=== PATIENT | male | born 1930 | race Caucasian/White ===

== ENCOUNTER 2016-06-16 11:30 | Emergency (ER) | payer MEDICARE, BC ==
--- NOTE | 2016-06-16 11:46 | ER Document Report ---
ED Medical Screen (RME) - General Stated Complaint: BLOOD PRESSURE PROBLEM Mode of Arrival: Ambulatory Information source: Patient Notes: PT PRESENTS TO THE ED FOR BLOOD PRESSURE CONCERNS. DR MEDEIROS SENT PATIENT TO ED. patient denies symptoms. Denies numbness tingling. Denies chest pain shortness of breath. Patient looks nontoxic happy. I have greeted and performed a rapid initial assessment of this patient. A comprehensive ED assessment and evaluation of the patient, analysis of test results and completion of the medical decision making process will be conducted by additional ED providers. TRAVEL OUTSIDE OF THE [place] IN LAST 30 DAYS: No Past Medical History Past Surgical History: Reports: Hx Cardiac Surgery - Immunizations Hx Diphtheria, Pertussis, Tetanus Vaccination: Yes Physical Exam - Vital signs Vitals: Temp Pulse Resp BP Pulse Ox 98.1 F 59 L 18 177/87 H 98 06/16/16 11:40 06/16/16 11:40 06/16/16 11:40 06/16/16 11:40 06/16/16 11:40 Course - Vital Signs Vital signs: Temp Pulse Resp BP Pulse Ox 98.1 F 59 L 18 177/87 H 98 06/16/16 11:40 06/16/16 11:40 06/16/16 11:40 06/16/16 11:40 06/16/16 11:40
[2016-06-16 12:58] LABS: APPEARANCE,URINE CLEAR; BILIRUBIN,URINE NEGATIVE (NEGATIVE); GLUCOSE, URINE NEGATIVE (NEGATIVE); KETONES,URINE NEGATIVE (NEGATIVE); LEUKOCYTE ESTERASE,URINE NEGATIVE (NEGATIVE); NITRITE,URINE NEGATIVE (NEGATIVE); PROTEIN,URINE NEGATIVE (NEGATIVE); URINE SPECIFIC GRAVITY 1.006; UROBILINOGEN,URINE NEGATIVE mg/dL (<2.0)
[2016-06-16 12:59] LABS: ABSOLUTE EOSINOPHILS # (AUTO) 0.2 10^3/uL (0.0-0.6); ABSOLUTE LYMPHOCYTES (AUTO) 1.1 10^3/uL (0.5-4.7); ABSOLUTE MONOCYTES (AUTO) 0.4 10^3/uL (0.1-1.4); ABSOLUTE NEUT (AUTO) 3.8 10^3/uL (1.7-8.2); BASOPHILS % (AUTO) 0.7 % (0-2); EOSINOPHILS % (AUTO) 4.4 % (0-6); HEMATOCRIT 37.6 % (37.9-51.0); HEMOGLOBIN 12.8 g/dL (13.5-17.0); HGB HCT DIFFERENCE 0.8; LYMPHOCYTES % (AUTO) 18.9 % (13-45); MEAN CORPUSCULAR HEMOGLOBIN 29.9 pg (27.0-33.4); MEAN CORPUSCULAR HGB CONC 34.2 g/dL (32.0-36.0); MEAN CORPUSCULAR VOLUME 87 fl (80-97); RED CELL DISTRIBUTION WIDTH 12.9 % (11.5-14.0); WHITE BLOOD COUNT 5.6 10^3/uL (4.0-10.5)
[2016-06-16 13:14] LABS: ALANINE AMINOTRANSFERASE 25 U/L (21-72); ALBUMIN 4.2 g/dL (3.5-5.0); ALKALINE PHOSPHATASE 71 U/L (38-126); ANION GAP 10 (5-19); ASPARTATE AMINO TRANSFERASE 22 U/L (17-59); BILIRUBIN,DIRECT 0.2 mg/dL (0.0-0.4); BILIRUBIN,TOTAL 0.8 mg/dL (0.2-1.3); BLOOD UREA NITROGEN 20 mg/dL (7-20); CALCIUM 9.5 mg/dL (8.4-10.2); CARBON DIOXIDE 29 mmol/L (22-30); CHLORIDE 102 mmol/L (98-107); CREATINE KINASE 86 U/L (55-170); CREATININE RESULT 0.94 mg/dL (0.52-1.25); GLUCOSE 91 mg/dL (75-110); POTASSIUM 4.5 mmol/L (3.6-5.0); SODIUM 140.8 mmol/L (137-145); TOTAL PROTEIN 7.2 g/dL (6.3-8.2)
[2016-06-16 13:31] LABS: CREATINE KINASE MB 0.81 ng/mL (<4.55)
[2016-06-16 13:33] LABS: TROPONIN I < 0.012 ng/mL
[2016-06-16 13:36] LABS: PROTHROMBIN TIME 15.2 SEC (11.4-15.4)
--- NOTE | 2016-06-16 15:17 | ER Document Report ---
ED Blood Pressure Problem <CARL BELOL - Last Filed: 06/16/16 15:31> - General Time seen by provider: 15:05 Mode of Arrival: Ambulatory Information source: Patient, Relative - spouse TRAVEL OUTSIDE OF THE [place] IN LAST 30 DAYS: No - HPI Patient complains to provider of: High blood pressure Onset: Other - see HPI note Onset/Duration: Persistent Quality of pain: No pain Problem is: Chronic problem Associated symptoms: None Similar symptoms previously: Yes Recently seen / treated by doctor: Yes - Dr. Sterling, Thursday <ALEIDA GRACE - Last Filed: 06/16/16 15:58> - General Chief Complaint: High Blood Pressure Stated Complaint: BLOOD PRESSURE PROBLEM Notes: Patient is an 85 year old male presenting to the emergency department for hypertension. Patient has a history of hypertension and saw his primary care physician, Dr. Pollard for his hypertension on Thursday; Dr. Pollard upped the patient's dose of Carvedilol from 12.5 mg x2 per day to 18.5 mg x2 per day. Patient and spouse went to [facility] this morning and the patient's blood pressure was 201/ 101 and 216/97 later on today. Patient has been taking his medication as prescribed. Patient states he feels fine and complains of no symptoms. Patient also has a history of prostate cancer, bypass surgery, and a normal heart catheterization in 11/2015. Patient has no known allergies. Patient's spouse states the patient is scheduled for surgery Thursday at [facility] to remove his penile implant and fix a right inguinal hernia. (ALEIDA GRACE) - Related Data Allergies/Adverse Reactions: No Known Allergies Allergy (Verified 06/16/16 11:46) Past Medical History - General Information source: Patient, Relative - spouse - Social History Smoking Status: Never Smoker Chew tobacco use (# tins/day): No Frequency of alcohol use: None Drug Abuse: None Family History: None Patient has suicidal ideation: No Patient has homicidal ideation: No Malignancy Medical History: Reports Hx Prostate Cancer Past Surgical History: Reports: Hx Appendectomy - 1955, Hx Cardiac Catheterization - 11/2015, Hx Coronary Artery Bypass Graft - 1999, Hx Orthopedic Surgery - back sugery 1984, Other - prostatectomy 1994, penile implant prosynthesis 1995, cateract R eye 2007 - Immunizations Hx Diphtheria, Pertussis, Tetanus Vaccination: Yes Hx Pneumococcal Vaccination: 12/21/12 <KASISDYWHITNEYALEIDA - Last Filed: 06/16/16 15:58> Review of Systems - Review of Systems Constitutional: See HPI - hypertension EENT: No symptoms reported Cardiovascular: No symptoms reported Respiratory: No symptoms reported Gastrointestinal: No symptoms reported Genitourinary: No symptoms reported Male Genitourinary: No symptoms reported Musculoskeletal: No symptoms reported Skin: No symptoms reported Hematologic/Lymphatic: No symptoms reported Neurological/Psychological: No symptoms reported -: Yes All other systems reviewed and negative <KASSIDYWHITNEYALEIDA - Last Filed: 06/16/16 15:58> Physical Exam - Vital signs Interpretation: Hypertensive - General General appearance: Appears well, Alert In distress: Mild - HEENT Head: Normocephalic, Atraumatic Eyes: Normal Pupils: PERRL Mucous membranes: Moist - Respiratory Respiratory status: No respiratory distress Chest status: Nontender Breath sounds: Normal Chest palpation: Normal - Cardiovascular Rhythm: Regular Heart sounds: Normal auscultation Murmur: No - Abdominal Inspection: Normal Distension: No distension Bowel sounds: Normal Tenderness: Nontender Organomegaly: No organomegaly - Back Back: Normal, Nontender - Extremities General upper extremity: Normal inspection, Normal ROM, Normal strength General lower extremity: Normal inspection, Normal ROM, Normal strength - Neurological Neuro grossly intact: Yes Cognition: Normal Orientation: AAOx4 Melvin Coma Scale Eye Opening: Spontaneous Melvin Coma Scale Verbal: Oriented [place] Coma Scale Motor: Obeys Commands [place] Coma Scale Total: 15 Speech: Normal - Psychological Associated symptoms: Normal affect, Normal mood - Skin Skin Temperature: Warm Skin Moisture: Dry <ALEIDA GRACE - Last Filed: 06/16/16 15:58> - Vital signs Vitals: Temp Pulse Resp BP Pulse Ox 98.1 F 59 L 18 177/87 H 98 06/16/16 11:40 06/16/16 11:40 06/16/16 11:40 06/16/16 11:40 06/16/16 11:40 Course - Laboratory Result Diagrams: 06/16/16 12:33 06/16/16 12:33 <CARL BELLO - Last Filed: 06/16/16 15:31> - Laboratory Result Diagrams: 06/16/16 12:33 06/16/16 12:33 <ALEIDA GRACE - Last Filed: 06/16/16 15:58> - Vital Signs Vital signs: Temp Pulse Resp BP Pulse Ox 98.1 F 59 L 18 177/87 H 98 06/16/16 11:40 06/16/16 11:40 06/16/16 11:40 06/16/16 11:40 06/16/16 11:40 - Laboratory Laboratory results interpreted by me: 06/16/16 06/16/16 12:33 12:33 RBC 4.30 L Hgb 12.8 L Hct 37.6 L Urine Blood SMALL H Discharge <CARL BELLO - Last Filed: 06/16/16 15:31> <ALEIDA GRACE - Last Filed: 06/16/16 15:58> - Discharge Clinical Impression: High blood pressure Qualifiers: Hypertension type: essential hypertension Qualified Code(s): I10 - Essential ( primary) hypertension Additional Instructions: You had your Carvedilol 12.5mg increased from 1 to 1-1/2 tablets twice daily starting last Thursday. Dr. Pollard requests that you increase your current Lisinopril 20mg twice daily to 40mg(2 tabs) in the morning and 20 mg(1 tab) in the evening. Call your surgeon in [place] and let him know about the blood pressure problems and the medication increase that is being tried. Check your blood pressure in the morning, mid day, and in the evening and write down the numbers. Follow-up with Dr. Pollard if the blood pressure remains elevated. Otherwise, get the outpatient blood work ordered today, done on 06/27/2016 and then follow-up with Dr. Pollard. RETURN TO THE EMERGENCY ROOM IF ANY NEW OR WORSENING SYMPTOMS. Forms: Follow-Up Laboratory Testing Referrals: NICHELLE WOODS MD [ACTIVE STAFF] - Follow up as needed Scribe Attestation: 06/16/16 15:39 I personally performed the services described in the documentation, reviewed and edited the documentation which was dictated to the scribe in my presence, and it accurately records my words and actions. (CARL BELLO) Scribe Documentation - Scribe Written by Scribe:: Aleida Grace 06/16/16 15:15 acting as scribe for :: Afua <ALEIDA GRACE - Last Filed: 06/16/16 15:58>
--- NOTE | 2016-06-16 15:58 | EKG REPORT ---
SEVERITY:- ABNORMAL ECG - SINUS RHYTHM FIRST DEGREE AV BLOCK LEFT ANTERIOR FASCICULAR BLOCK LEFT VENTRICULAR HYPERTROPHY : Confirmed by: Alvaro Garcia 16-Jun-2016 15:56:53
[2016-06-16 16:03] VITALS: BP 173/79
== END 2016-06-16 16:02 | disposition home or self-care (01) ==
LOC: ER 11:30
DX: I10 Essential (primary) hypertension (principal); Z85.46 Personal history of malignant neoplasm of prostate; Z95.1 Presence of aortocoronary bypass graft
CPT/HCPCS: 36415; 71020; 80053; 81001; 82550; 82553; 84484; 85025; 85610; 93005; 93010; 99284

== ENCOUNTER 2016-06-27 14:20 | Inpatient (IN) | payer MEDICARE, BC ==
--- NOTE | 2016-06-27 14:43 | ER Document Report ---
ED Medical Screen (RME) - General Chief Complaint: Altered Mental Status Stated Complaint: ALTERED MENTAL STATE Notes: Patient is here to be evaluated for altered mental status. He was admitted to the hospital in [place] last week and on Thursday had his penile implant removed and he was discharged home on Thursday. He also had a hernia that they had wanted to repair, but decided to put it off until a later time because they were concerned about infection. Patient has done well during the week, but went back yesterday to have a drain removed. After he Back home from that visit , his says that he has had confusion and altered mental status. Doesn't recognize things and is talking about things that aren't there. Patient seems to know that he is not thinking correctly some of the time, at least. Has not had any vomiting or diarrhea. says he's been constipated. Patient denies any abdominal pains, chest pains, or shortness of breath. No reported fever. TRAVEL OUTSIDE OF THE [place] IN LAST 30 DAYS: No - Related Data Allergies/Adverse Reactions: No Known Allergies Allergy (Verified 06/27/16 14:25) Past Medical History Renal/ Medical History: Denies: Hx Peritoneal Dialysis Malignancy Medical History: Reports Hx Prostate Cancer Past Surgical History: Reports: Hx Appendectomy - 1955, Hx Cardiac Catheterization - 11/2015, Hx Cardiac Surgery, Hx Coronary Artery Bypass Graft - 1999, Hx Orthopedic Surgery - back sugery 1984, Other - prostatectomy 1994, penile implant prosynthesis 1995, cateract R eye 2007 - Immunizations Hx Diphtheria, Pertussis, Tetanus Vaccination: Yes Physical Exam - Vital signs Vitals: Temp Pulse Resp BP Pulse Ox 97.4 F 58 L 18 154/76 H 97 06/27/16 14:27 06/27/16 14:27 06/27/16 14:27 06/27/16 14:27 06/27/16 14:27 Course - Vital Signs Vital signs: Temp Pulse Resp BP Pulse Ox 97.4 F 58 L 18 154/76 H 97 06/27/16 14:27 06/27/16 14:27 06/27/16 14:27 06/27/16 14:27 06/27/16 14:27
[2016-06-27 15:37] LABS: ABSOLUTE EOSINOPHILS # (AUTO) 0.5 10^3/uL (0.0-0.6); ABSOLUTE LYMPHOCYTES (AUTO) 0.9 10^3/uL (0.5-4.7); ABSOLUTE MONOCYTES (AUTO) 0.3 10^3/uL (0.1-1.4); ABSOLUTE NEUT (AUTO) 3.1 10^3/uL (1.7-8.2); BASOPHILS % (AUTO) 0.8 % (0-2); EOSINOPHILS % (AUTO) 10.3 % (0-6); HEMATOCRIT 37.1 % (37.9-51.0); HEMOGLOBIN 12.5 g/dL (13.5-17.0); HGB HCT DIFFERENCE 0.4; LYMPHOCYTES % (AUTO) 18.5 % (13-45); MEAN CORPUSCULAR HEMOGLOBIN 29.7 pg (27.0-33.4); MEAN CORPUSCULAR HGB CONC 33.7 g/dL (32.0-36.0); MEAN CORPUSCULAR VOLUME 88 fl (80-97); MONOCYTES % (AUTO) 6.5 % (3-13); RED BLOOD COUNT 4.22 10^6/uL (4.35-5.55); RED CELL DISTRIBUTION WIDTH 12.9 % (11.5-14.0); SEGMENTED NEUTROPHILS % (AUTO) 63.9 % (42-78); WHITE BLOOD COUNT 4.9 10^3/uL (4.0-10.5)
[2016-06-27 15:56] LABS: ALANINE AMINOTRANSFERASE 24 U/L (21-72); ALKALINE PHOSPHATASE 66 U/L (38-126); ANION GAP 11 (5-19); ASPARTATE AMINO TRANSFERASE 22 U/L (17-59); BILIRUBIN,DIRECT 0.3 mg/dL (0.0-0.4); BILIRUBIN,TOTAL 0.6 mg/dL (0.2-1.3); BLOOD UREA NITROGEN 16 mg/dL (7-20); CALCIUM 9.3 mg/dL (8.4-10.2); CARBON DIOXIDE 29 mmol/L (22-30); CHLORIDE 103 mmol/L (98-107); CREATININE RESULT 1.03 mg/dL (0.52-1.25); GLUCOSE 107 mg/dL (75-110); POTASSIUM 4.8 mmol/L (3.6-5.0); SODIUM 142.6 mmol/L (137-145); TOTAL PROTEIN 6.9 g/dL (6.3-8.2)
--- NOTE | 2016-06-27 17:12 | ER Document Report ---
ED General - General Mode of Arrival: Ambulatory Information source: Patient, Relative TRAVEL OUTSIDE OF THE [place] IN LAST 30 DAYS: No - HPI Patient complains to provider of: Altered Mental Status Onset: Yesterday Associated symptoms: Other - see notes above <NIKKI BOSS - Last Filed: 06/27/16 18:40> <BRANDYNEMILIA DENA - Last Filed: 06/27/16 22:34> - General Chief Complaint: Altered Mental Status Stated Complaint: ALTERED MENTAL STATE Notes: 85 year old male presents to the ED accompanied by family who state the patient has been in an altered mental status since yesterday. Family reports that the patient had a penile implant removed by Dr. Jones in [place] 1 week ago. Family reports that the surgical site has been swollen and red since the surgery and mentions no change today. Family also states that the patient hasn' t had a bowel movement in 3 days. Family denies abdominal pain, dysuria, or shortness of breath. Family states that his blood pressure medication was increased last week. Patient's primary care provider is Dr. Mittal. (NIKKI BOSS) - Related Data Allergies/Adverse Reactions: No Known Allergies Allergy (Verified 06/27/16 14:25) Home Medications: Current Home Medications Aspirin [Aspirin EC] 162 mg PO DAILY 06/27/16 [History] Carbidopa/Levodopa [Carbidopa-Levodopa 10-100 Tab] 1.5 tab PO Q12 06/27/16 [ History] Carvedilol [Carvedilol] 18.75 mg PO Q12 06/27/16 [History] Docusate Sodium [Doc-Q-Lace] 200 mg PO DAILY@1200 06/27/16 [History] Ezetimibe/Simvastatin [Vytorin 10-40 mg Tablet] 1 tab PO DAILY@1200 06/27/16 [ History] Isosorbide Mononitrate [Isosorbide Mononitrate ER] 30 mg PO QHS 06/27/16 [ History] Lisinopril [Lisinopril] 20 mg PO QHS 06/27/16 [History] Lisinopril [Lisinopril] 40 mg PO DAILY 06/27/16 [History] Psyllium Husk/Aspartame [Metamucil Fiber Singles Packet] 1 packet PO DAILY 06/27 [History] Rasagiline Mesylate [Rasagiline Mesylate] 1 mg PO DAILY 06/27/16 [History] Vitamin E [Natural Vitamin E] 1 cap PO DAILY@1200 06/27/16 [History] Past Medical History - General Information source: Patient, Relative - Social History Smoking Status: Unknown if Ever Smoked Family History: None Patient has suicidal ideation: No Patient has homicidal ideation: No Renal/ Medical History: Denies: Hx Peritoneal Dialysis Malignancy Medical History: Reports Hx Prostate Cancer Past Surgical History: Reports: Hx Appendectomy - 1955, Hx Cardiac Catheterization - 11/2015, Hx Cardiac Surgery, Hx Coronary Artery Bypass Graft - 1999, Hx Orthopedic Surgery - back sugery 1984, Other - prostatectomy 1994, penile implant prosynthesis 1995, cateract R eye 2007 - Immunizations Hx Diphtheria, Pertussis, Tetanus Vaccination: Yes Hx Pneumococcal Vaccination: 12/21/12 <NIKKI BOSS - Last Filed: 06/27/16 18:40> Review of Systems - Review of Systems Constitutional: No symptoms reported EENT: No symptoms reported Cardiovascular: No symptoms reported Respiratory: No symptoms reported. denies: Short of breath Gastrointestinal: No symptoms reported. denies: Abdominal pain Genitourinary: No symptoms reported. denies: Dysuria Male Genitourinary: No symptoms reported Musculoskeletal: No symptoms reported Skin: No symptoms reported Hematologic/Lymphatic: No symptoms reported Neurological/Psychological: See HPI, Confusion -: Yes All other systems reviewed and negative <NIKKI BOSS - Last Filed: 06/27/16 18:40> Physical Exam - Vital signs Interpretation: Normal - General General appearance: Appears well, Alert - HEENT Head: Normocephalic, Atraumatic Eyes: Normal Cornea: No: Embedded foreign body, Flourescein stain uptake, Superficial foreign body Extraocular movements intact: Yes Pupils: PERRL Visual mason normal: Yes - Respiratory Respiratory status: No respiratory distress Chest status: Nontender Breath sounds: Normal Chest palpation: Normal - Cardiovascular Rhythm: Regular Heart sounds: Normal auscultation Murmur: No - Abdominal Inspection: Normal Distension: No distension Bowel sounds: Normal Tenderness: Nontender Organomegaly: No organomegaly - Genitourinary Inspection: Normal. No: Blood at meatus Tenderness: Nontender Scrotum: Swelling, Other - Large hernia on right side. No: Redness, Hot to touch - Back Back: Normal, Nontender - Extremities General upper extremity: Normal inspection, Nontender, Normal color, Normal ROM , Normal temperature General lower extremity: Normal inspection, Nontender, Normal color, Normal ROM , Normal temperature, Normal weight bearing. No: Marcial's sign - Neurological Neuro grossly intact: Yes Cognition: Normal Orientation: Disoriented to time, Disoriented to events [place] Coma Scale Eye Opening: Spontaneous Melvin Coma Scale Verbal: Confused [place] Coma Scale Motor: Obeys Commands [place]vin Coma Scale Total: 14 Speech: Normal Motor strength normal: LUE, RUE, LLE, RLE Sensory: Normal - Psychological Associated symptoms: Normal affect, Normal mood - Skin Skin Temperature: Warm Skin Moisture: Dry Skin Color: Normal <EMILIA AHUMADA - Last Filed: 06/27/16 22:34> - Vital signs Vitals: Temp Pulse Resp BP Pulse Ox 97.4 F 58 L 18 154/76 H 97 06/27/16 14:27 06/27/16 14:27 06/27/16 14:27 06/27/16 14:27 06/27/16 14:27 Course - Laboratory Result Diagrams: 06/27/16 15:18 06/27/16 15:18 - Consults Dr. Doss Time consulted: 17:39 [facility] Time consulted: 17:17 Dr. Bailey Time consulted: 17:28 <NIKKI BOSS - Last Filed: 06/27/16 18:40> - Laboratory Result Diagrams: 06/27/16 15:18 06/27/16 15:18 <EMILIA AHUMADA - Last Filed: 06/27/16 22:34> - Re-evaluation Re-evalutation: 06/27/16 Patient has no acute findings on CT. No acute findings on blood work. No fever. Patient has had a recent removal of indwelling penile implant. 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 Discussed with urology at [facility] who did not think that this is the source of his confusion. Patient is neurologically intact. Sensation is intact. No weakness. No acute findings on CT. Patient is confused. Patient does not appear to have any infection at this time. Patient will be referred to the hospital service for continued workup and management of encephalopathy. Stable at time of admission. Family agrees with this plan. (EMILIA AHUMADA) - Vital Signs Vital signs: Temp Pulse Resp BP Pulse Ox 97.4 F 77 18 147/72 H 99 06/27/16 14:27 06/27/16 21:00 06/27/16 21:00 06/27/16 21:00 06/27/16 21:00 - Laboratory Laboratory results interpreted by me: 06/27/16 06/27/16 06/27/16 15:18 15:18 15:18 RBC 4.22 L Hgb 12.5 L Hct 37.1 L Eosinophils % 10.3 H Creatine Kinase 53 L Urine Ketones TRACE H Urine Blood SMALL H - Consults Dr. oDss Reason for consultation: 06/27/16 17:39 Patient was discussed with Dr. Doss and agrees to admit the patient. (NIKKI BOSS) Karena Lopez Reason for consultation: 06/27/16 17:17 Karena Lopez was paged regarding Dr. Jones's patient. (NIKKI BOSS) Dr. Bailey Reason for consultation: 06/27/16 17:28 Patient's recent penile implant removal surgery was discussed with Dr. Bailey and states that the patient's status is not related to the surgery. (NIKKI BOSS) Critical Care Note - Critical Care Note Total time excluding time spent on procedures (mins): 35 - evaluation and management of confusion, multiple re-evaluations, coordination of admission, counseling of patient and family <EMILIA AHUMADA - Last Filed: 06/27/16 22:34> Discharge <NIKKI BOSS - Last Filed: 06/27/16 18:40> - Discharge Admitting Provider: Daisy Doss Unit Admitted: [facility]U <EMILIA AHUMADA - Last Filed: 06/27/16 22:34> - Discharge Clinical Impression: Encephalopathy, Parkinsons disease TIA (transient ischemic attack) Qualifiers: Transient cerebral ischemia type: unspecified Qualified Code(s): G45.9 - Transient cerebral ischemic attack, unspecified Condition: Stable Disposition: ADMITTED INPATIENT Scribe Attestation: 06/27/16 22:34 I personally performed the services described in the documentation, reviewed and edited the documentation which was dictated to the scribe in my presence, and it accurately records my words and actions. (EMILIA AHUMADA) Scribe Documentation - Scribe Written by Bob:: Bob Linares, 06/27/2016 1820 acting as scribe for :: Brandyn <NIKKI BOSS - Last Filed: 06/27/16 18:40>
[2016-06-27 17:19] LABS: CREATINE KINASE MB 0.75 ng/mL (<4.55)
[2016-06-27 17:21] LABS: TROPONIN I < 0.012 ng/mL
[2016-06-27 17:42] LABS: APPEARANCE,URINE CLEAR; BILIRUBIN,URINE NEGATIVE (NEGATIVE); GLUCOSE, URINE NEGATIVE (NEGATIVE); KETONES,URINE TRACE mg/dL (NEGATIVE); LEUKOCYTE ESTERASE,URINE NEGATIVE (NEGATIVE); NITRITE,URINE NEGATIVE (NEGATIVE); PROTEIN,URINE NEGATIVE (NEGATIVE); URINE SPECIFIC GRAVITY 1.021; UROBILINOGEN,URINE NEGATIVE mg/dL (<2.0)
[2016-06-27] MEDS ORDERED: ONDANSETRON HCL INJ/PF 4 MG/2 ML SDV IV PRN (18:13)
[2016-06-27] MEDS ORDERED: ACETAMINOPHEN 650 MG SUPP.RECT PR PRN (18:13)
[2016-06-27] MEDS ORDERED: DEXTROSE 5%-1/2 NORMAL SALINE 1,000 ML IV PRN (18:13)
[2016-06-27 18:53] LABS: URINE BARBITURATES SCREEN NEGATIVE; URINE METHADONE SCREEN NEGATIVE; URINE OPIATES LOW NEGATIVE; URINE PHENCYCLIDINE SCREEN NEGATIVE
--- NOTE | 2016-06-27 19:10 | PDOC H&P ---
History of Present Illness Admission Date/PCP: 06/27/16 18:13 NICHELLE WOODS, Patient complains of: Altered mental status History of Present Illness: GIL ROLDAN is a 85 year old male that is accompanied to the emergency department by his for 1 day history of altered mental status. She states that he seems more confused and has abnormal speech pattern. He has also noted occasional visual hallucination. It is noted that he had aspirin stopped a little over a week ago for a urologic surgery and did not resume aspirin until today. Again his symptoms began yesterday. Patient apparently had a penile implant removed one week ago by Dr. Jones of urology in [facility] last week. He had follow-up yesterday and drain removal. He also has a large right inguinal hernia for which be Jones is following. Patient complains of right eye itching and drainage. Past Medical History Cardiac Medical History: Reports: Coronary Artery Disease, Hyperlipidema, Hypertension Neurological Medical History: Reports: Other - Parkinson's Malignancy Medical History: Reports: Other - Prostate cancer Past Surgical History Past Surgical History: Reports: Appendectomy - 1955, Cardiac Catheterization - 11/2015, Coronary Artery Bypass Graft - 1999, Orthopedic Surgery - back sugery 1984, Other - prostatectomy 1994, penile implant prosynthesis 1995, cateract R eye 2007 Social History Information Source: Patient Lives with: Spouse/Significant other Smoking Status: Unknown if Ever Smoked Frequency of Alcohol Use: None - Advance Directive Resuscitation Status: Full Code Family History Family History: Reviewed & Not Pertinent Parental Family History Reviewed: Yes Children Family History Reviewed: Yes Sibling(s) Family History Reviewed.: Yes Medication/Allergy Home Medications: Diazepam [Valium 2 mg Tablet] 2 mg PO Q6HP PRN #20 tablet 05/29/13 Allergies/Adverse Reactions: No Known Allergies Allergy (Verified 06/27/16 14:25) Review of Systems Constitutional: ABSENT: chills, fever(s), headache(s), weight gain, weight loss Eyes: ABSENT: visual disturbances Ears: ABSENT: hearing changes Cardiovascular: ABSENT: chest pain, dyspnea on exertion, edema, orthropnea, palpitations Respiratory: ABSENT: cough, hemoptysis Gastrointestinal: ABSENT: abdominal pain, constipation, diarrhea, hematemesis, hematochezia, nausea, vomiting Genitourinary: ABSENT: dysuria, hematuria Musculoskeletal: ABSENT: joint swelling Integumentary: ABSENT: rash, wounds Neurological: PRESENT: abnormal speech, confusion. ABSENT: abnormal gait, dizziness, focal weakness, syncope Psychiatric: ABSENT: anxiety, depression, homidical ideation, suicidal ideation Endocrine: ABSENT: cold intolerance, heat intolerance, polydipsia, polyuria Hematologic/Lymphatic: ABSENT: easy bleeding, easy bruising Physical Exam Vital Signs: Temp Pulse Resp BP Pulse Ox 97.4 F 58 L 24 H 159/93 H 96 06/27/16 14:27 06/27/16 16:00 06/27/16 17:01 06/27/16 17:01 06/27/16 17:01 PHYSICAL EXAM: GENERAL: Appears well, no acute distress HEENT: Normocephalic, right conjunctiva injected, EOEM intact, PERRLA, moist mucous membranes NECK: trachea midline, no thyromegally RESPIRATORY: Clear to auscultation, no wheezes/rhonchi CARDIAC: Regular rate and rhythm, no murmur/rad/rub ABDOMEN: Soft, no distension, no tenderness, no guarding, normal bowel sounds, negative Campos sign RECTAL: deferred : deferred EXTREMITIES: No edema, cyanosis, clubbing MUSCULOSKELETAL: No joint swelling or deformity VASCULAR: normal peripheral pulses NEUROLOGIC: Alert, oriented to person/place/time, normal speech, cranial nerves grossly intact, 5/5 strength in all extremities, tactile sensation intact in all extremities SKIN: No rash, no wounds, no worrisome skin lesions PSYCHIATRIC: Flat affect Results Laboratory Results: Labs- All tests 24 hr 06/27/16 06/27/16 06/27/16 15:18 15:18 15:18 WBC 4.9 RBC 4.22 L Hgb 12.5 L Hct 37.1 L MCV 88 MCH 29.7 MCHC 33.7 RDW 12.9 Plt Count 188 Seg Neutrophils % 63.9 Lymphocytes % 18.5 Monocytes % 6.5 Eosinophils % 10.3 H Basophils % 0.8 Absolute Neutrophils 3.1 Absolute Lymphocytes 0.9 Absolute Monocytes 0.3 Absolute Eosinophils 0.5 Absolute Basophils 0.0 Sodium 142.6 Potassium 4.8 Chloride 103 Carbon Dioxide 29 Anion Gap 11 BUN 16 Creatinine 1.03 Est GFR ( Amer) > 60 Est GFR (Non-Af Amer) > 60 Glucose 107 Calcium 9.3 Total Bilirubin 0.6 Direct Bilirubin 0.3 Indirect Bilirubin Not Reportable Neonat Total Bilirubin Not Reportable AST 22 ALT 24 Alkaline Phosphatase 66 Creatine Kinase 53 L CK-MB (CK-2) Troponin I Total Protein 6.9 Albumin 4.0 Urine Color Urine Appearance Urine pH Ur Specific [place] Urine Protein Urine Glucose (UA) Urine Ketones Urine Blood Urine Nitrite Urine Bilirubin Urine Urobilinogen Ur Leukocyte Esterase Urine WBC (Auto) Urine RBC (Auto) Squamous Epi Cells Auto Urine Mucus (Auto) Urine Ascorbic Acid Urine Opiates Screen Urine Methadone Screen Ur Barbiturates Screen Ur Phencyclidine Scrn Ur Amphetamines Screen U Benzodiazepines Scrn Urine Cocaine Screen U Marijuana (THC) Screen 06/27/16 06/27/16 06/27/16 15:18 15:18 15:18 WBC RBC Hgb Hct MCV MCH MCHC RDW Plt Count Seg Neutrophils % Lymphocytes % Monocytes % Eosinophils % Basophils % Absolute Neutrophils Absolute Lymphocytes Absolute Monocytes Absolute Eosinophils Absolute Basophils Sodium Potassium Chloride Carbon Dioxide Anion Gap BUN Creatinine Est GFR ( Amer) Est GFR (Non-Af Amer) Glucose Calcium Total Bilirubin Direct Bilirubin Indirect Bilirubin Neonat Total Bilirubin AST ALT Alkaline Phosphatase Creatine Kinase CK-MB (CK-2) 0.75 Troponin I < 0.012 Total Protein Albumin Urine Color YELLOW Urine Appearance CLEAR Urine pH 5.0 Ur Specific [place] 1.021 Urine Protein NEGATIVE Urine Glucose (UA) NEGATIVE Urine Ketones TRACE H Urine Blood SMALL H Urine Nitrite NEGATIVE Urine Bilirubin NEGATIVE Urine Urobilinogen NEGATIVE Ur Leukocyte Esterase NEGATIVE Urine WBC (Auto) 1 Urine RBC (Auto) 1 Squamous Epi Cells Auto <1 Urine Mucus (Auto) RARE Urine Ascorbic Acid NEGATIVE Urine Opiates Screen NEGATIVE Urine Methadone Screen NEGATIVE Ur Barbiturates Screen NEGATIVE Ur Phencyclidine Scrn NEGATIVE Ur Amphetamines Screen NEGATIVE U Benzodiazepines Scrn NEGATIVE Urine Cocaine Screen NEGATIVE U Marijuana (THC) Screen NEGATIVE Impressions: Chest X-Ray 06/27/16 00:00 IMPRESSION: NO ACUTE CARDIOPULMONARY PROCESS. NO SIGNIFICANT CHANGE FROM PRIOR STUDY Head CT 06/27/16 14:43 IMPRESSION: Limited negative study Assessment & Plan - Diagnosis (1) TIA (transient ischemic attack) Is this a current diagnosis for this admission?: YesPlan: Patient will be placed in observation status on telemetry monitoring. Start aspirin 325 daily, Lipitor 40 mg daily. Check MRI of the brain. Check carotid Dopplers. I think this may have resulted from patient being taken off aspirin in the perioperative period. (2) CAD (coronary artery disease) Is this a current diagnosis for this admission?: YesPlan: Continue aspirin. Start Lipitor. Verify home medication. (3) HTN (hypertension) Is this a current diagnosis for this admission?: Yes (4) Right inguinal hernia Is this a current diagnosis for this admission?: Yes (5) Parkinsons disease Is this a current diagnosis for this admission?: YesPlan: Verify home medications and resume. (6) Conjunctivitis Qualifiers: Acute conjunctivitis type: bacterial Laterality: right Is this a current diagnosis for this admission?: YesPlan: Start gentamicin ophthalmic. - Time Time Spent: Greater than 70 Minutes Anticipated discharge: Home Within: within 48 hours
[2016-06-27] MEDS ORDERED: ASPIRIN 81 MG TABLET, CHEWABLE PO ONE (20:00)
[2016-06-27] MEDS ORDERED: ATORVASTATIN CALCIUM 40 MG TABLET PO SCH (22:00)
[2016-06-27] MEDS: GENTAMICIN SULFATE 0.3% OPH SOLN 5 ML OD SCH (22:09)
--- NOTE | 2016-06-27 22:24 | EKG REPORT ---
SEVERITY:- ABNORMAL ECG - SINUS RHYTHM FIRST DEGREE AV BLOCK LEFT ANTERIOR FASCICULAR BLOCK LEFT VENTRICULAR HYPERTROPHY : Confirmed by: Colleen Marcelo MD 27-Jun-2016 22:24:12
[2016-06-27] MEDS: HYDRALAZINE HCL INJ/PF 20 MG/1 ML SDV IV PRN (23:56)
[2016-06-28] MEDS: GENTAMICIN SULFATE 0.3% OPH SOLN 5 ML OD SCH ×6 (01:20→22:05)
[2016-06-28 04:16] LABS: ABSOLUTE EOSINOPHILS # (AUTO) 0.5 10^3/uL (0.0-0.6); ABSOLUTE LYMPHOCYTES (AUTO) 1.2 10^3/uL (0.5-4.7); ABSOLUTE MONOCYTES (AUTO) 0.4 10^3/uL (0.1-1.4); ABSOLUTE NEUT (AUTO) 3.2 10^3/uL (1.7-8.2); BASOPHILS % (AUTO) 0.7 % (0-2); EOSINOPHILS % (AUTO) 9.8 % (0-6); HEMATOCRIT 36.3 % (37.9-51.0); HEMOGLOBIN 12.5 g/dL (13.5-17.0); HGB HCT DIFFERENCE 1.2; LYMPHOCYTES % (AUTO) 22.7 % (13-45); MEAN CORPUSCULAR HEMOGLOBIN 29.7 pg (27.0-33.4); MEAN CORPUSCULAR HGB CONC 34.3 g/dL (32.0-36.0); MEAN CORPUSCULAR VOLUME 87 fl (80-97); SEGMENTED NEUTROPHILS % (AUTO) 59.8 % (42-78); WHITE BLOOD COUNT 5.3 10^3/uL (4.0-10.5)
[2016-06-28 04:43] LABS: ANION GAP 11 (5-19); BLOOD UREA NITROGEN 13 mg/dL (7-20); CALCIUM 9.2 mg/dL (8.4-10.2); CARBON DIOXIDE 27 mmol/L (22-30); CHLORIDE 107 mmol/L (98-107); CREATININE RESULT 0.88 mg/dL (0.52-1.25); GLUCOSE 94 mg/dL (75-110); MAGNESIUM 1.9 mg/dL (1.6-2.3); POTASSIUM 3.9 mmol/L (3.6-5.0); SODIUM 144.8 mmol/L (137-145)
[2016-06-28 04:56] LABS: FREE T3 4.15 pg/mL (2.77-5.27)
[2016-06-28 05:10] LABS: THYROID STIMULATING HORMONE 0.95 uIU/mL (0.47-4.68)
[2016-06-28] MEDS ORDERED: CARBIDOPA/LEVODOPA 10-100 MG TABLET PO SCH ×2 (08:00→09:00)
[2016-06-28] MEDS: ENOXAPARIN SODIUM INJ 40 MG/0.4 ML DISP.SYRIN SUBCUT SCH (08:56)
[2016-06-28] MEDS: ASPIRIN 325 MG TABLET, ENT COATED PO SCH (09:31)
[2016-06-28] MEDS: LISINOPRIL 10 MG TABLET PO SCH ×2 (09:32→22:01)
[2016-06-28] MEDS: HYDRALAZINE HCL INJ/PF 20 MG/1 ML SDV IV PRN (09:32)
[2016-06-28] MEDS: CARVEDILOL 12.5 MG TABLET PO SCH ×2 (09:33→22:02)
[2016-06-28] MEDS ORDERED: RASAGILINE MESYLATE 1 MG PO SCH (10:00)
[2016-06-28] MEDS ORDERED: (PENDING PHARMACY ID) (Lisinopril [Lisinopril] 40 MG) PO SCH (10:00)
[2016-06-28] MEDS ORDERED: [UNRECOGNIZED DRUG - OTHER] PO SCH (10:00)
[2016-06-28] MEDS ORDERED: AMLODIPINE BESYLATE 5 MG TABLET PO ONE (11:00)
[2016-06-28] MEDS ORDERED: MAGNESIUM HYDROXIDE SUSP 30 ML UDCUP PO ONE (11:30)
[2016-06-28] MEDS: VITAMIN E (DL, ACETATE) 400 UNIT CAPSULE PO SCH (11:52)
[2016-06-28] MEDS: EZETIMIBE 10 MG TABLET PO SCH (11:53)
[2016-06-28] MEDS: SIMVASTATIN 40 MG TABLET PO SCH (11:54)
[2016-06-28] MEDS: DOCUSATE SODIUM 100 MG CAPSULE PO SCH (11:55)
[2016-06-28] MEDS: PSYLLIUM SEED-SF 5.85 GM PACKET PO SCH ×2 (11:55)
[2016-06-28] MEDS ORDERED: EZETIMIBE PO SCH (12:00)
[2016-06-28] MEDS ORDERED: VITAMIN E PO SCH (12:00)
[2016-06-28] MEDS ORDERED: SIMVASTATIN PO SCH (12:00)
[2016-06-28] MEDS: CARBIDOPA/LEVODOPA 10-100 MG TABLET PO SCH ×2 (14:30→22:03)
--- NOTE | 2016-06-28 15:40 | PDOC PROGRESS REPORT ---
Subjective Progress Note for:: 06/28/16 Subjective:: Patient's symptoms of confusion and dysarthria have improved/resolved. Patient complains of constipation. Patient denies fever, chills, headache, new focal weakness, chest pain, shortness of breath, abdominal pain, nausea, vomiting, diarrhea. Physical Exam Vital Signs: Temp Pulse Resp BP Pulse Ox 98.4 F 62 16 131/60 H 99 06/28/16 12:09 06/28/16 12:31 06/28/16 12:31 06/28/16 12:31 06/28/16 12:31 Intake & Output 06/27/16 06/28/16 06/29/16 06:59 06:59 06:59 Intake Total 197 Output Total 400 Balance -203 Weight 96.3 kg GENERAL: No acute distress HEENT: Conjunctiva clear, nonicteric, moist mucous membranes, no JVD, midline trachea RESPIRATORY: Clear to auscultation bilaterally, no wheezes, no rhonchi CARDIAC: Regular rate and rhythm, no murmurs/gallops/rubs ABDOMEN: Soft, nondistended, nontender, positive bowel sounds, no rebound, no guarding EXTREMETIES: No edema, cyanosis, clubbing NEUROLOGIC: Alert, oriented to person/place/time, CN's grossly intact, no focal deficits SKIN: No rash, wounds PSYCH: Normal mood, normal affect Results Laboratory Results: 06/28/16 04:01 06/28/16 04:01 06/28/16 06/28/16 06/28/16 04:01 04:01 04:01 WBC 5.3 RBC 4.20 L Hgb 12.5 L Hct 36.3 L MCV 87 MCH 29.7 MCHC 34.3 RDW 13.0 Plt Count 154 Seg Neutrophils % 59.8 Lymphocytes % 22.7 Monocytes % 7.0 Eosinophils % 9.8 H Basophils % 0.7 Absolute Neutrophils 3.2 Absolute Lymphocytes 1.2 Absolute Monocytes 0.4 Absolute Eosinophils 0.5 Absolute Basophils 0.0 Sodium 144.8 Potassium 3.9 Chloride 107 Carbon Dioxide 27 Anion Gap 11 BUN 13 Creatinine 0.88 Est GFR ( Amer) > 60 Est GFR (Non-Af Amer) > 60 Glucose 94 Calcium 9.2 Magnesium 1.9 TSH 0.95 Free T4 1.60 Free T3 pg/mL 4.15 Impressions: Chest X-Ray 06/27/16 00:00 IMPRESSION: NO ACUTE CARDIOPULMONARY PROCESS. NO SIGNIFICANT CHANGE FROM PRIOR STUDY Head CT 06/27/16 14:43 IMPRESSION: Limited negative study Head MRI 06/27/16 18:58 IMPRESSION: MILD DIFFUSE VOLUME LOSS AND MICROVASCULAR ISCHEMIC CHANGE. NO ACUTE ISCHEMIA, HEMORRHAGE, OR MASS LESION. Carotid Doppler Study 06/28/16 00:00 IMPRESSION: NO HEMODYNAMICALLY SIGNIFICANT STENOSIS. Assessment & Plan - Diagnosis (1) TIA (transient ischemic attack) Qualifiers: Transient cerebral ischemia type: unspecified Qualified Code(s): G45.9 - Transient cerebral ischemic attack, unspecified Is this a current diagnosis for this admission?: YesPlan: Continue aspirin 325 daily. Discontinue Lipitor. Resume home dose of Vytorin. MRI of the brain shows no acute stroke. Carotid Dopplers showed no hemodynamically significant stenosis. I think this may have resulted from patient being taken off aspirin in the perioperative period. (2) CAD (coronary artery disease) Is this a current diagnosis for this admission?: YesPlan: Continue aspirin, Vytorin. Verify home medication. (3) HTN (hypertension) Is this a current diagnosis for this admission?: YesPlan: Hypertension remains uncontrolled. Add Norvasc 5 mg daily. Continue home dose of Coreg, Imdur, lisinopril. When necessary IV hydralazine. (4) Right inguinal hernia Is this a current diagnosis for this admission?: Yes (5) Parkinsons disease Is this a current diagnosis for this admission?: YesPlan: Resume home dose of Sinemet. (6) Conjunctivitis Qualifiers: Acute conjunctivitis type: bacterial Laterality: right Is this a current diagnosis for this admission?: YesPlan: Continue gentamicin ophthalmic. (7) Constipation Is this a current diagnosis for this admission?: YesPlan: Give one-time dose of milk of magnesia. Continue home dose of Colace and Metamucil. - Time Time Spent with patient: 35 or more minutes Anticipated discharge: Home Within: within 24 hours
[2016-06-28] MEDS ORDERED: (PENDING PHARMACY ID) (Lisinopril [Lisinopril] 20 MG) PO SCH (22:00)
[2016-06-28] MEDS: ISOSORBIDE MONONITRATE 30 MG TAB.ER.24H PO SCH (22:01)
[2016-06-29] MEDS: GENTAMICIN SULFATE 0.3% OPH SOLN 5 ML OD SCH ×6 (02:14→22:23)
[2016-06-29 04:38] LABS: ABSOLUTE BASOPHILS # (AUTO) 0.1 10^3/uL (0.0-0.2); ABSOLUTE EOSINOPHILS # (AUTO) 0.6 10^3/uL (0.0-0.6); ABSOLUTE LYMPHOCYTES (AUTO) 1.7 10^3/uL (0.5-4.7); ABSOLUTE MONOCYTES (AUTO) 0.6 10^3/uL (0.1-1.4); ABSOLUTE NEUT (AUTO) 3.9 10^3/uL (1.7-8.2); BASOPHILS % (AUTO) 0.8 % (0-2); EOSINOPHILS % (AUTO) 8.5 % (0-6); HEMATOCRIT 36.1 % (37.9-51.0); HEMOGLOBIN 12.5 g/dL (13.5-17.0); HGB HCT DIFFERENCE 1.4; LYMPHOCYTES % (AUTO) 24.8 % (13-45); MEAN CORPUSCULAR HGB CONC 34.7 g/dL (32.0-36.0); MEAN CORPUSCULAR VOLUME 87 fl (80-97); MONOCYTES % (AUTO) 8.6 % (3-13); RED BLOOD COUNT 4.17 10^6/uL (4.35-5.55); RED CELL DISTRIBUTION WIDTH 13.5 % (11.5-14.0); SEGMENTED NEUTROPHILS % (AUTO) 57.3 % (42-78); WHITE BLOOD COUNT 6.7 10^3/uL (4.0-10.5)
[2016-06-29 05:00] LABS: ANION GAP 13 (5-19); BLOOD UREA NITROGEN 20 mg/dL (7-20); CARBON DIOXIDE 24 mmol/L (22-30); CHLORIDE 105 mmol/L (98-107); CREATININE RESULT 1.05 mg/dL (0.52-1.25); GLUCOSE 99 mg/dL (75-110); POTASSIUM 4.4 mmol/L (3.6-5.0); SODIUM 141.6 mmol/L (137-145)
[2016-06-29] MEDS: CARBIDOPA/LEVODOPA 10-100 MG TABLET PO SCH ×3 (05:58→22:22)
[2016-06-29] MEDS ORDERED: NA PHOS,M-B/NA PHOS,DI-BA (ADULT) 133 ML ENEMA PR ONE (09:30)
[2016-06-29] MEDS: ENOXAPARIN SODIUM INJ 40 MG/0.4 ML DISP.SYRIN SUBCUT SCH (10:11)
[2016-06-29] MEDS: PSYLLIUM SEED-SF 5.85 GM PACKET PO SCH ×2 (10:17)
[2016-06-29] MEDS: AMLODIPINE BESYLATE 5 MG TABLET PO SCH (10:17)
[2016-06-29] MEDS: LISINOPRIL 10 MG TABLET PO SCH ×2 (10:17→22:23)
[2016-06-29] MEDS: ASPIRIN 325 MG TABLET, ENT COATED PO SCH (10:18)
[2016-06-29] MEDS: CARVEDILOL 12.5 MG TABLET PO SCH ×2 (10:18→22:23)
[2016-06-29] MEDS: DOXYCYCLINE HYCLATE 100 MG TABLET PO SCH ×2 (10:18→22:23)
[2016-06-29] MEDS: VITAMIN E (DL, ACETATE) 400 UNIT CAPSULE PO SCH (12:38)
[2016-06-29] MEDS: DOCUSATE SODIUM 100 MG CAPSULE PO SCH (12:38)
[2016-06-29] MEDS: EZETIMIBE 10 MG TABLET PO SCH (12:39)
[2016-06-29] MEDS: SIMVASTATIN 40 MG TABLET PO SCH (12:39)
--- NOTE | 2016-06-29 13:33 | PDOC DISCHARGE SUMMARY ---
General - Admit/Disc Date/PCP Admission Date/Primary Care Provider: 06/27/16 18:13 NICHELLE WOODS, Discharge Date: 06/29/16 - Discharge Diagnosis (1) TIA (transient ischemic attack) Is this a current diagnosis for this admission?: Yes (2) CAD (coronary artery disease) Is this a current diagnosis for this admission?: Yes (3) HTN (hypertension) Is this a current diagnosis for this admission?: Yes (4) Right inguinal hernia Is this a current diagnosis for this admission?: Yes (5) Parkinsons disease Is this a current diagnosis for this admission?: Yes (6) Conjunctivitis Is this a current diagnosis for this admission?: Yes (7) Constipation Is this a current diagnosis for this admission?: Yes - Additional Information Resuscitation Status: Full Code Discharge Diet: Cardiac Discharge Activity: Slowly Increase Activity Home Medications: Carbidopa/Levodopa [Carbidopa-Levodopa 10-100 Tab] 1.5 tab PO TID 06/27/16 Docusate Sodium [Doc-Q-Lace] 200 mg PO DAILY@1200 06/27/16 Ezetimibe/Simvastatin [Vytorin 10-40 mg Tablet] 1 tab PO DAILY@1200 06/27/16 Isosorbide Mononitrate [Isosorbide Mononitrate ER] 30 mg PO QHS 06/27/16 Lisinopril 20 mg PO QHS 06/27/16 Lisinopril 40 mg PO DAILY 06/27/16 Psyllium Husk/Aspartame [Metamucil Fiber Singles Packet] 1 packet PO DAILY 06/27 Rasagiline Mesylate 1 mg PO DAILY 06/27/16 Vitamin E [Natural Vitamin E] 1 cap PO DAILY@1200 06/27/16 Amlodipine Besylate [Norvasc 5 mg Tablet] 5 mg PO DAILY #30 tablet 06/29/16 Aspirin [Ecotrin 325 mg EC Tablet] 325 mg PO DAILY tabec 06/29/16 Carvedilol [Coreg 12.5 mg Tablet] 12.5 mg PO Q12 tablet 06/29/16 Doxycycline Hyclate [Vibramycin 100 mg Tablet] 100 mg PO Q12 #20 tablet Gentamicin Sulfate [Garamycin 0.3% Oph Soln 5 ml] 1 drop OD Q4 #1 bottle History of Present Illness Patient complains of: Altered mental status History of Present Illness: GIL ROLDAN is a 85 year old male that is accompanied to the emergency department by his for 1 day history of altered mental status. She states that he seems more confused and has abnormal speech pattern. He has also noted occasional visual hallucination. It is noted that he had aspirin stopped a little over a week ago for a urologic surgery and did not resume aspirin until today. Again his symptoms began yesterday. Patient apparently had a penile implant removed one week ago by Dr. Jones of urology in [facility] last week. He had follow-up yesterday and drain removal. He also has a large right inguinal hernia for which be Jones is following. Patient complains of right eye itching and drainage. Hospital Course Hospital Course: Patient was admitted for TIA. Symptoms resolved within 24 hours of admission. MRI of the brain showed no acute stroke. Carotid Doppler showed no hemodynamically significant stenosis. Patient's aspirin regimen was escalated to 325 mg daily. He was maintained on Vytorin. It was felt that his TIA was related to the fact that he was taken off of antiplatelet therapy for little over a week for a urologic procedure. He is advised in the future to avoid any discontinuation of antiplatelet regimen for at least the next several months and after that point to maybe consider lower dose of antiplatelet therapy around the time of procedure rather than complete discontinuation. Patient had positive urine culture and recent urologic procedure. He was started on doxycycline. Final culture and sensitivity still pending. He will need to follow-up with his primary medical provider for this. Patient had uncontrolled hypertension. He was started on Norvasc 5 mg daily. Coreg was decreased to 12.5 mg twice daily secondary to bradycardia. 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 Patient was treated for right eye conjunctivitis with gentamicin ophthalmic solution. Patient has a large right inguinal hernia. He is under the care of Dr. Jones of urology in [facility]. He recently had penile implant removed in preparation for eventually having surgical repair of right inguinal hernia. He will need to follow-up with urology to plan this procedure. I would probably wait a couple months for further surgical intervention secondary to current TIA. Patient has ambulatory dysfunction as a result of Parkinson's. I have offered to arrange home physical therapy and he and his have declined at the time. Physical Exam Vital Signs: Temp Pulse Resp BP Pulse Ox 98.6 F 57 L 16 114/47 L 99 06/29/16 12:00 06/29/16 12:00 06/29/16 12:00 06/29/16 12:00 06/29/16 12:00 Intake & Output 06/28/16 06/29/16 06/30/16 06:59 06:59 06:59 Intake Total 197 1170 Output Total 400 300 Balance -203 870 Weight 96.3 kg 95.8 kg GENERAL: No acute distress HEENT: Conjunctiva clear, nonicteric, moist mucous membranes, no JVD, midline trachea RESPIRATORY: Clear to auscultation bilaterally, no wheezes, no rhonchi CARDIAC: Regular rate and rhythm, no murmurs/gallops/rubs ABDOMEN: Soft, nondistended, nontender, positive bowel sounds, no rebound, no guarding EXTREMETIES: No edema, cyanosis, clubbing NEUROLOGIC: Alert, oriented to person/place/time, CN's grossly intact, no focal deficits SKIN: No rash, wounds PSYCH: Normal mood, normal affect Results Laboratory Results: 06/29/16 03:32 06/29/16 03:32 06/29/16 06/29/16 03:32 03:32 WBC 6.7 RBC 4.17 L Hgb 12.5 L Hct 36.1 L MCV 87 MCH 30.0 MCHC 34.7 RDW 13.5 Plt Count 194 Seg Neutrophils % 57.3 Lymphocytes % 24.8 Monocytes % 8.6 Eosinophils % 8.5 H Basophils % 0.8 Absolute Neutrophils 3.9 Absolute Lymphocytes 1.7 Absolute Monocytes 0.6 Absolute Eosinophils 0.6 Absolute Basophils 0.1 Sodium 141.6 Potassium 4.4 Chloride 105 Carbon Dioxide 24 Anion Gap 13 BUN 20 Creatinine 1.05 Est GFR ( Amer) > 60 Est GFR (Non-Af Amer) > 60 Glucose 99 Calcium 9.0 Labs- Last Values WBC 6.7 10^3/uL (4.0-10.5) 06/29/16 03:32 RBC 4.17 10^6/uL (4.35-5.55) L 06/29/16 03:32 Hgb 12.5 g/dL (13.5-17.0) L 06/29/16 03:32 Hct 36.1 % (37.9-51.0) L 06/29/16 03:32 MCV 87 fl (80-97) 06/29/16 03:32 MCH 30.0 pg (27.0-33.4) 06/29/16 03:32 MCHC 34.7 g/dL (32.0-36.0) 06/29/16 03:32 RDW 13.5 % (11.5-14.0) 06/29/16 03:32 Plt Count 194 10^3/uL (150-450) 06/29/16 03:32 Seg Neutrophils % 57.3 % (42-78) 06/29/16 03:32 Lymphocytes % 24.8 % (13-45) 06/29/16 03:32 Monocytes % 8.6 % (3-13) 06/29/16 03:32 Eosinophils % 8.5 % (0-6) H 06/29/16 03:32 Basophils % 0.8 % (0-2) 06/29/16 03:32 Absolute Neutrophils 3.9 10^3/uL (1.7-8.2) 06/29/16 03:32 Absolute Lymphocytes 1.7 10^3/uL (0.5-4.7) 06/29/16 03:32 Absolute Monocytes 0.6 10^3/uL (0.1-1.4) 06/29/16 03:32 Absolute Eosinophils 0.6 10^3/uL (0.0-0.6) 06/29/16 03:32 Absolute Basophils 0.1 10^3/uL (0.0-0.2) 06/29/16 03:32 Sodium 141.6 mmol/L (137-145) 06/29/16 03:32 Potassium 4.4 mmol/L (3.6-5.0) 06/29/16 03:32 Chloride 105 mmol/L (98-107) 06/29/16 03:32 Carbon Dioxide 24 mmol/L (22-30) 06/29/16 03:32 Anion Gap 13 (5-19) 06/29/16 03:32 BUN 20 mg/dL (7-20) 06/29/16 03:32 Creatinine 1.05 mg/dL (0.52-1.25) 06/29/16 03:32 Est GFR ( Amer) > 60 (>60) 06/29/16 03:32 Est GFR (Non-Af Amer) > 60 (>60) 06/29/16 03:32 Glucose 99 mg/dL (75-110) 06/29/16 03:32 Calcium 9.0 mg/dL (8.4-10.2) 06/29/16 03:32 Magnesium 1.9 mg/dL (1.6-2.3) 06/28/16 04:01 Total Bilirubin 0.6 mg/dL (0.2-1.3) 06/27/16 15:18 Direct Bilirubin 0.3 mg/dL (0.0-0.4) 06/27/16 15:18 Indirect Bilirubin Not Reportable 06/27/16 15:18 Neonat Total Bilirubin Not Reportable 06/27/16 15:18 AST 22 U/L (17-59) 06/27/16 15:18 ALT 24 U/L (21-72) 06/27/16 15:18 Alkaline Phosphatase 66 U/L (38-126) 06/27/16 15:18 Creatine Kinase 53 U/L (55-170) L 06/27/16 15:18 CK-MB (CK-2) 0.75 ng/mL (<4.55) 06/27/16 15:18 Troponin I < 0.012 ng/mL 06/27/16 15:18 Total Protein 6.9 g/dL (6.3-8.2) 06/27/16 15:18 Albumin 4.0 g/dL (3.5-5.0) 06/27/16 15:18 Vitamin B12 724.0 pg/mL (239-931) 06/27/16 15:18 TSH 0.95 uIU/mL (0.47-4.68) 06/28/16 04:01 Free T4 1.60 ng/dL (0.78-2.19) 06/28/16 04:01 Free T3 pg/mL 4.15 pg/mL (2.77-5.27) 06/28/16 04:01 Urine Color YELLOW 06/27/16 15:18 Urine Appearance CLEAR 06/27/16 15:18 Urine pH 5.0 (5.0-9.0) 06/27/16 15:18 Ur Specific [place] 1.021 06/27/16 15:18 Urine Protein NEGATIVE mg/dL (NEGATIVE) 06/27/16 15:18 Urine Glucose (UA) NEGATIVE mg/dL (NEGATIVE) 06/27/16 15:18 Urine Ketones TRACE mg/dL (NEGATIVE) H 06/27/16 15:18 Urine Blood SMALL (NEGATIVE) H 06/27/16 15:18 Urine Nitrite NEGATIVE (NEGATIVE) 06/27/16 15:18 Urine Bilirubin NEGATIVE (NEGATIVE) 06/27/16 15:18 Urine Urobilinogen NEGATIVE mg/dL (<2.0) 06/27/16 15:18 Ur Leukocyte Esterase NEGATIVE (NEGATIVE) 06/27/16 15:18 Urine WBC (Auto) 1 /HPF 06/27/16 15:18 Urine RBC (Auto) 1 /HPF 06/27/16 15:18 Squamous Epi Cells Auto <1 /HPF 06/27/16 15:18 Urine Mucus (Auto) RARE /LPF 06/27/16 15:18 Urine Ascorbic Acid NEGATIVE (NEGATIVE) 06/27/16 15:18 Urine Opiates Screen NEGATIVE 06/27/16 15:18 Urine Methadone Screen NEGATIVE 06/27/16 15:18 Ur Barbiturates Screen NEGATIVE 06/27/16 15:18 Ur Phencyclidine Scrn NEGATIVE 06/27/16 15:18 Ur Amphetamines Screen NEGATIVE 06/27/16 15:18 U Benzodiazepines Scrn NEGATIVE 06/27/16 15:18 Urine Cocaine Screen NEGATIVE 06/27/16 15:18 U Marijuana (THC) Screen NEGATIVE 06/27/16 15:18 Impressions: Chest X-Ray 06/27/16 00:00 IMPRESSION: NO ACUTE CARDIOPULMONARY PROCESS. NO SIGNIFICANT CHANGE FROM PRIOR STUDY Head CT 06/27/16 14:43 IMPRESSION: Limited negative study Head MRI 06/27/16 18:58 IMPRESSION: MILD DIFFUSE VOLUME LOSS AND MICROVASCULAR ISCHEMIC CHANGE. NO ACUTE ISCHEMIA, HEMORRHAGE, OR MASS LESION. Carotid Doppler Study 06/28/16 00:00 IMPRESSION: NO HEMODYNAMICALLY SIGNIFICANT STENOSIS. Qualifiers PATEINT BEING DISCHARGED WITH ANY OF THE FOLLOWING DIAGNOSIS?: Stroke VTE patient discharged on overlapping Therapy?: Yes Stroke Pt being discharged on Anti-thrombolytic therapy?: Yes Stroke Pt being discharged on Anti-coagulation therapy?: No Reason(s) for not prescribing Anti-coagulation therapy:: Not indicated Stroke Pt being discharged on Statins?: Yes Plan Time Spent: Less than 30 Minutes
[2016-06-29] MEDS ORDERED: BISACODYL 10 MG SUPP.RECT PR ONE (15:15)
[2016-06-29] MEDS ORDERED: MAGNESIUM CITRATE 296 ML BOTTLE PO ONE (15:15)
[2016-06-29] MEDS: ISOSORBIDE MONONITRATE 30 MG TAB.ER.24H PO SCH (22:23)
[2016-06-30] MEDS: GENTAMICIN SULFATE 0.3% OPH SOLN 5 ML OD SCH ×3 (01:55→09:17)
[2016-06-30 04:55] LABS: ABSOLUTE EOSINOPHILS # (AUTO) 0.5 10^3/uL (0.0-0.6); ABSOLUTE LYMPHOCYTES (AUTO) 1.3 10^3/uL (0.5-4.7); ABSOLUTE MONOCYTES (AUTO) 0.5 10^3/uL (0.1-1.4); ABSOLUTE NEUT (AUTO) 3.9 10^3/uL (1.7-8.2); BASOPHILS % (AUTO) 0.8 % (0-2); EOSINOPHILS % (AUTO) 7.6 % (0-6); HEMATOCRIT 34.8 % (37.9-51.0); HGB HCT DIFFERENCE 1.2; LYMPHOCYTES % (AUTO) 21.1 % (13-45); MEAN CORPUSCULAR HEMOGLOBIN 30.1 pg (27.0-33.4); MEAN CORPUSCULAR HGB CONC 34.6 g/dL (32.0-36.0); MEAN CORPUSCULAR VOLUME 87 fl (80-97); MONOCYTES % (AUTO) 7.6 % (3-13); RED CELL DISTRIBUTION WIDTH 13.1 % (11.5-14.0); SEGMENTED NEUTROPHILS % (AUTO) 62.9 % (42-78); WHITE BLOOD COUNT 6.2 10^3/uL (4.0-10.5)
[2016-06-30 05:30] LABS: ANION GAP 12 (5-19); BLOOD UREA NITROGEN 22 mg/dL (7-20); CALCIUM 8.8 mg/dL (8.4-10.2); CARBON DIOXIDE 25 mmol/L (22-30); CHLORIDE 103 mmol/L (98-107); CREATININE RESULT 1.06 mg/dL (0.52-1.25); GLUCOSE 120 mg/dL (75-110); POTASSIUM 4.6 mmol/L (3.6-5.0); SODIUM 139.6 mmol/L (137-145)
[2016-06-30] MEDS: CARBIDOPA/LEVODOPA 10-100 MG TABLET PO SCH (06:06)
[2016-06-30 08:48] VITALS: BP 188/73
[2016-06-30] MEDS: PSYLLIUM SEED-SF 5.85 GM PACKET PO SCH ×2 (09:14)
[2016-06-30] MEDS: ENOXAPARIN SODIUM INJ 40 MG/0.4 ML DISP.SYRIN SUBCUT SCH (09:14)
[2016-06-30] MEDS: ASPIRIN 325 MG TABLET, ENT COATED PO SCH (09:15)
[2016-06-30] MEDS: CARVEDILOL 12.5 MG TABLET PO SCH (09:15)
[2016-06-30] MEDS: DOXYCYCLINE HYCLATE 100 MG TABLET PO SCH (09:16)
[2016-06-30] MEDS: AMLODIPINE BESYLATE 5 MG TABLET PO SCH (09:16)
[2016-06-30] MEDS: LISINOPRIL 10 MG TABLET PO SCH (09:16)
== END 2016-06-30 10:42 | disposition home or self-care (01) | DRG 69 ==
LOC: ER 14:20 → EH 18:12 → UNDOADMIN 18:12 → EH 18:13 → UNDOADMIN 18:13 → EH 18:34 → 3N 22:48 → UNDODISIN 06-30 10:42
PROVIDERS: ADMIT Family Medicine; ATTEND Family Medicine
DX: G45.9 Transient cerebral ischemic attack, unspecified (principal); G20 Parkinson's disease; I25.10 Atherosclerotic heart disease of native coronary artery without angina pectoris; E78.5 Hyperlipidemia, unspecified; I10 Essential (primary) hypertension; K40.90 Unilateral inguinal hernia, without obstruction or gangrene, not specified as recurrent; H10.33 Unspecified acute conjunctivitis, bilateral; K59.00 Constipation, unspecified; N50.89 Other specified disorders of the male genital organs; R47.1 Dysarthria and anarthria; Z88.6 Allergy status to analgesic agent; Z85.46 Personal history of malignant neoplasm of prostate; Z90.49 Acquired absence of other specified parts of digestive tract; Z98.890 Other specified postprocedural states; Z95.1 Presence of aortocoronary bypass graft; Z90.79 Acquired absence of other genital organ(s)
CPT/HCPCS: 36415; 70450; 70551; 71010; 80048; 80053; 80307; 81001; 82550; 82553; 82607; 83735; 84439; 84443; 84481; 84484; 85025; 87040; 87086; 87088; 87186; 93005; 93010; 93880; 99291; J0360; J1650; J3490

== ENCOUNTER → 2016-06-27 | Outpatient (CLI) | payer MEDICARE, BC ==
[2016-06-27 15:06] LABS: ANION GAP 12 (5-19); BLOOD UREA NITROGEN 16 mg/dL (7-20); CALCIUM 9.1 mg/dL (8.4-10.2); CARBON DIOXIDE 28 mmol/L (22-30); CHLORIDE 103 mmol/L (98-107); GLUCOSE 101 mg/dL (75-110); POTASSIUM 4.5 mmol/L (3.6-5.0); SODIUM 143.2 mmol/L (137-145)
== END ==
LOC: OD 13:55
PROVIDERS: ATTEND Emergency Medicine
DX: I10 Essential (primary) hypertension (principal)
CPT/HCPCS: 36415; 80048

== ENCOUNTER → 2016-08-21 | Outpatient (CLI) | payer MEDICARE, BC ==
[2016-08-22 12:45] LABS: ANION GAP 8 (5-19); BLOOD UREA NITROGEN 23 mg/dL (7-20); CALCIUM 9.5 mg/dL (8.4-10.2); CARBON DIOXIDE 28 mmol/L (22-30); CHLORIDE 105 mmol/L (98-107); CHOLESTEROL 125.62 mg/dL (0-200); CREATININE RESULT 1.17 mg/dL (0.52-1.25); Direct HDL 52 mg/dL (>40); GLUCOSE 94 mg/dL (75-110); POTASSIUM 4.9 mmol/L (3.6-5.0); SODIUM 141.1 mmol/L (137-145); TRIGLYCERIDES 58 mg/dL (<150)
[2016-08-22 12:56] LABS: DIRECT LDL 53 mg/dL (<100)
== END ==
LOC: OD 09:52
PROVIDERS: ATTEND Internal Medicine Cardiovascular Disease
DX: E78.00 Pure hypercholesterolemia, unspecified (principal); Z79.899 Other long term (current) drug therapy
CPT/HCPCS: 36415; 80048; 80061

== ENCOUNTER 2016-11-16 11:25 | Emergency (ER) | payer MEDICARE, BC ==
[2016-11-16] MEDS ORDERED: LIDOCAINE 1% INJ-PF (10 MG/ML) 30 ML SDV INJ ONE (11:35)
[2016-11-16] MEDS ORDERED: DIPH/PERTUSS(ACELL)/TETANUS VAC/PF 0.5 ML SYR (>=10YO) IM ONE (11:37)
--- NOTE | 2016-11-16 11:42 | ER Document Report ---
ED Fall - General Chief Complaint: Facial Injury Stated Complaint: FALL FACE INJURY Time Seen by Provider: 11/16/16 11:34 Mode of Arrival: Stretcher Information source: Patient TRAVEL OUTSIDE OF THE [place] IN LAST 30 DAYS: No - HPI Patient complains to provider of: fall, facial injury Occurred: Just prior to arrival Where: Outdoors Context: Tripped Associated symptoms: None Location of injury/pain: Face, Hand, Knee Quality of pain: Achy Severity: Mild Pain Level: 1 Notes: Patient is an 85-year-old male presenting to the emergency room via EMS status post trip and fall in a parking lot landing on his face apparently, he denies any loss of consciousness, no numbness or tingling to his extremities, no neck pain or back pain, his pain is mostly in his facial area and jaw with a laceration to his bottom lip ans inferior chin, bleeding from his nose and an abrasion to his right forehead, he has mild abrasions on bilateral hands and knees as well but does not have any pain at the sites, was able to ambulate after the fall, denies nausea or vomiting - Related data Allergies/Adverse Reactions: No Known Allergies Allergy (Verified 11/16/16 12:06) Home Medications: Current Home Medications Aspirin [Ecotrin 81 mg EC Tablet] 162 mg PO QHS 11/16/16 [History] Carvedilol [Coreg 12.5 mg Tablet] 18.75 mg PO Q12 11/16/16 [History] Past Medical History - General Information source: Patient - Social History Smoking Status: Unknown if Ever Smoked Family History: Reviewed & Not Pertinent - Past Medical History Cardiac Medical History: Reports: Hx Coronary Artery Disease, Hx Hypercholesterolemia, Hx Hypertension Renal/ Medical History: Denies: Hx Peritoneal Dialysis Malignancy Medical History: Reports Hx Prostate Cancer Past Surgical History: Reports: Hx Appendectomy - 1955, Hx Cardiac Catheterization - 11/2015, Hx Cardiac Surgery, Hx Coronary Artery Bypass Graft - 1999, Hx Orthopedic Surgery - back sugery 1984, Other - prostatectomy 1994, penile implant prosynthesis 1995, cateract R eye 2007 - Immunizations Hx Diphtheria, Pertussis, Tetanus Vaccination: Yes Hx Pneumococcal Vaccination: 12/21/12 Review of Systems - Review of Systems Constitutional: No symptoms reported EENT: No symptoms reported Cardiovascular: No symptoms reported Respiratory: No symptoms reported Gastrointestinal: No symptoms reported Genitourinary: No symptoms reported Male Genitourinary: No symptoms reported Musculoskeletal: See HPI Skin: See HPI Hematologic/Lymphatic: No symptoms reported Neurological/Psychological: No symptoms reported -: Yes All other systems reviewed and negative Physical Exam - Vital signs Vitals: Temp Pulse Resp BP Pulse Ox 98.0 F 61 18 123/73 97 11/16/16 11:35 11/16/16 11:35 11/16/16 11:35 11/16/16 11:35 11/16/16 11:35 Interpretation: Normal - General General appearance: Alert In distress: None - HEENT Head: Normocephalic, Abrasions - Abrasions to face, mainly the right forehead, with active bleeding from nose, and 3 cm through and through laceration to bottom lip just below the vermilion border Eyes: Normal Conjunctiva: Normal Extraocular movements intact: Yes Eyelashes: Normal Pupils: PERRL Ears: Normal External canal: Normal Tympanic membrane: Normal Sinus: Tenderness Nasal: Bloody discharge Mouth/Lips: Laceration - 3 cm laceration to lower lip just at the vermilion border which goes through to the oral mucosa, Other - tenderness to palpate at right mandible and TMJ area bilaterally, pain with movement of mandible Pharynx: Normal Neck: Normal - Respiratory Respiratory status: No respiratory distress Chest status: Nontender Breath sounds: Normal Chest palpation: Normal - Cardiovascular Rhythm: Regular Heart sounds: Normal auscultation Murmur: No - Abdominal Inspection: Normal Distension: No distension Bowel sounds: Normal Tenderness: Nontender Organomegaly: No organomegaly - Back Back: Normal, Nontender - Extremities General upper extremity: Normal color, Normal ROM, Normal temperature General lower extremity: Normal color, Normal ROM, Normal temperature, Normal weight bearing. No: Marcial's sign Hand: Other - Small abrasions to palmar surfaces of bilateral hands, mainly in the thenar eminence, distal sensation and motor is intact with full range of motion and brisk capillary refill Knee: Abrasion - Small abrasions to bilateral knees, full range of motion, patient denies any pain, no deformity, distal sensation and motor is intact with 2+ DP pulses - Neurological Neuro grossly intact: Yes Cognition: Normal Orientation: AAOx4 Kerrick Coma Scale Eye Opening: Spontaneous Melvin Coma Scale Verbal: Oriented Melvin Coma Scale Motor: Obeys Commands Kerrick Coma Scale Total: 15 Speech: Normal Motor strength normal: LUE, RUE, LLE, RLE Sensory: Normal - Psychological Associated symptoms: Normal affect, Normal mood - Skin Skin Temperature: Warm Skin Moisture: Dry Skin Color: Normal Course - Re-evaluation Re-evalutation: 11/16/16 13:30 Patient has no cervical spine tenderness, denies any numbness or tingling to extremities, therefore CT head and facial were completed which shows bilateral mandibular condyle fractures with nondisplaced fracture of the right body of the mandible and a maxillary sinus fracture as well, patient's chin laceration was repaired using sutures, however since he is being transferred to [facility] as a trauma patient and I opted not to sew the through and through laceration of the lower lip as he will be seen by maxillofacial surgery there, patient was discussed with trauma surgeon, Dr. Morin who accepts patient for transfer - Vital Signs Vital signs: Temp Pulse Resp BP Pulse Ox 98.4 F 60 18 167/94 H 98 11/16/16 13:50 11/16/16 13:50 11/16/16 13:50 11/16/16 13:50 11/16/16 13:50 - Diagnostic Test Radiology reviewed: Image reviewed, Reports reviewed Procedures - Laceration/Wound Repair Chin Time completed: 13:38 Wound length (cm): 3 Wound's Depth, Shape: Irregular Laceration pre-procedure: Sterile PPE donned, Sterile drapes applied, Shur- Clens applied Anesthetic type: 1% Lidocaine Volume Anesthetic (mLs): 6 Wound explored: Clean Wound Repaired With: Sutures Suture Size/Type: 6:0, Nylon Number of Sutures: 5 Post-procedure wound care: Sterile dressing applied Post-procedure NV exam normal: Yes Complications: No Adult Head Front/Back picture: 1 - 3 cm laceration Discharge - Discharge Clinical Impression: Mandibular fracture, open Qualifiers: Encounter type: initial encounter Mandible location: condylar process Laterality: right Qualified Code(s): S02.611B - Fracture of condylar process of right mandible, initial encounter for open fracture Facial laceration Qualifiers: Encounter type: initial encounter Qualified Code(s): S01.81XA - Laceration without foreign body of other part of head, initial encounter Facial abrasion Qualifiers: Encounter type: initial encounter Qualified Code(s): S00.81XA - Abrasion of other part of head, initial encounter Head injury Qualifiers: Encounter type: initial encounter Qualified Code(s): S09.90XA - Unspecified injury of head, initial encounter Hand abrasion Qualifiers: Encounter type: initial encounter Laterality: unspecified laterality Qualified Code(s): S60.519A - Abrasion of unspecified hand, initial encounter Knee abrasion Qualifiers: Encounter type: initial encounter Laterality: unspecified laterality Qualified Code(s): S80.219A - Abrasion, unspecified knee, initial encounter Condition: Stable Disposition: [facility] Referrals: NICHELLE WOODS MD [Primary Care Provider] - Follow up as needed
--- NOTE | 2016-11-16 12:24 | RADIOLOGY REPORT (SQ) ---
EXAM DESCRIPTION: CT HEAD WITHOUT COMPLETED DATE/TIME: 11/16/2016 11:59 am REASON FOR STUDY: injury COMPARISON: 06/27/2016 TECHNIQUE: Axial images acquired through the brain without intravenous contrast. Images reviewed wi th bone, brain and subdural windows. Images stored on PACS. All CT scanners at this facility use dose modulation, iterative reconstruction, and/or weight based d osing when appropriate to reduce radiation dose to as low as reasonably achievable (ALARA). [facility]: Dose Right [facility]: CareDose [facility]: Dose Right [facility]: Teradose 4D [facility]: Smart [facility] RADIATION DOSE: Up-to-date CT equipment and radiation dose reduction techniques were employed. CTDIv ol: 64.6 mGy. DLP: 1163 mGy-cm.mGy. LIMITATIONS: Motion. FINDINGS: VENTRICLES: Prominent. CEREBRUM: No masses. No hemorrhage. No midline shift. Areas of low density in the white matter mos t likely due to chronic micro-vascular ischemic change. No evidence for acute infarction. CEREBELLUM: No masses. No hemorrhage. No alteration of density. No evidence for acute infarction. EXTRAAXIAL SPACES: Age-related involutional change. No fluid collections. No masses. ORBITS AND GLOBE: No intra- or extraconal masses. Normal contour of globe without masses. CALVARIUM: No fracture. PARANASAL SINUSES: Fluid left maxillary sinus. SOFT TISSUES: Gas anterior to the left maxilla. See separate report of the same day. OTHER: No other significant finding. IMPRESSION: No acute abnormality in the brain. TECHNICAL DOCUMENTATION: JOB ID: [id number] Quality ID # [id number]: Final reports with documentation of one or more dose reduction techniques (e.g., Au tomated exposure control, adjustment of the mA and/or kV according to patient size, use of iterative reconstruction technique) 2010 [employer]- All Rights Reserved
--- NOTE | 2016-11-16 12:34 | RADIOLOGY REPORT (SQ) ---
EXAM DESCRIPTION: CT FACIAL AREA WITHOUT COMPLETED DATE/TIME: 11/16/2016 11:59 am REASON FOR STUDY: fsll COMPARISON: None. TECHNIQUE: Noncontrasted images through the facial bones and orbits windowed for bone and soft tissu e. Additional coronal and sagittal reconstructed images reviewed. All images stored on PACS. All CT scanners at this facility use dose modulation, iterative reconstruction, and/or weight based d osing when appropriate to reduce radiation dose to as low as reasonably achievable (ALARA). [facility]: Dose Right [facility]: CareDose [facility]: Dose Right [facility]: Teradose 4D [facility]: [employer] RADIATION DOSE: Up-to-date CT equipment and radiation dose reduction techniques were employed. CTDIv ol: 30.4 mGy. DLP: 617 mGy-cm. mGy. LIMITATIONS: None. FINDINGS: FACIAL BONES: Segmental fracture of both mandibular condyles. There is a crack in the rig ht mandible at the level of the 1st molar. Nondisplaced fracture of the left anterior maxillary wall. ORBITS: Intact. No fracture. Symmetric intact globes and retroorbital soft tissues. PARANASAL SINUSES: Fluid in the left maxillary sinus. SOFT TISSUES: No foreign body. INFERIOR BRAIN: See separate report of the same date. OTHER: No other significant finding. IMPRESSION: Fracture of both mandibular condyles. Nondisplaced fracture body of the right mandible. Nondisplaced fracture left anterior maxillary sinus wall. TECHNICAL DOCUMENTATION: JOB ID: [id number] Quality ID # [id number]: Final reports with documentation of one or more dose reduction techniques (e.g., Au tomated exposure control, adjustment of the mA and/or kV according to patient size, use of iterative reconstruction technique) 2010 [employer]- All Rights Reserved
[2016-11-16 13:51] VITALS: BP 167/94
== END 2016-11-16 13:53 | disposition short-term general hospital (02) ==
LOC: ER 11:25
PROC: 0HQ1XZZ Repair Face Skin, External Approach (ICD-10-PCS; principal; 2016-11-16)
DX: S02.611B Fracture of condylar process of right mandible, initial encounter for open fracture (principal); S01.81XA Laceration without foreign body of other part of head, initial encounter; S00.81XA Abrasion of other part of head, initial encounter; S09.90XA Unspecified injury of head, initial encounter; S60.519A Abrasion of unspecified hand, initial encounter; S80.219A Abrasion, unspecified knee, initial encounter; W01.0XXA Fall on same level from slipping, tripping and stumbling without subsequent striking against object, initial encounter; Y92.481 Parking lot as the place of occurrence of the external cause; I25.10 Atherosclerotic heart disease of native coronary artery without angina pectoris; E78.00 Pure hypercholesterolemia, unspecified; I10 Essential (primary) hypertension; Z85.46 Personal history of malignant neoplasm of prostate; Z95.1 Presence of aortocoronary bypass graft; Z23 Encounter for immunization
CPT/HCPCS: 99284; 90471; 70450; 70486; 90715; 12013; J3490

== ENCOUNTER 2016-12-02 16:30 | Inpatient (IN) | payer MEDICARE, BC ==
[2016-12-02] MEDS ORDERED: NORMAL SALINE 500 ML IV PRN (18:39)
--- NOTE | 2016-12-02 18:45 | ER Document Report ---
ED General - General Chief Complaint: Altered Mental Status Stated Complaint: UNRESPONSIVE Time Seen by Provider: 12/02/16 18:18 Mode of Arrival: Medic Information source: Patient Notes: This is an 85-year-old man with a history of coronary artery disease, Parkinson' s disease, hypertension who is brought in by EMS after an episode of unresponsiveness at home. Patient recently had a fall where he sustained a mandibular fracture and required surgery in [place] 3 weeks ago. Family states that he has not been eating and drinking that much. He has been able to tolerate his medicines. The patient's states that he has syncopized a few times in the last week. Currently, the patient is alert and denies any pain. TRAVEL OUTSIDE OF THE [place] IN LAST 30 DAYS: No - HPI Onset: Last week Onset/Duration: Gradual Quality of pain: No pain Severity: None Pain Level: Denies Associated symptoms: denies: Chest pain, Fever, Shortness of breath Exacerbated by: Denies Relieved by: Denies Similar symptoms previously: Yes Recently seen / treated by doctor: Yes - Related Data Allergies/Adverse Reactions: No Known Allergies Allergy (Verified 11/16/16 12:06) Past Medical History - General Information source: Patient, Relative - Social History Smoking Status: Never Smoker Cigarette use (# per day): No Chew tobacco use (# tins/day): No Frequency of alcohol use: None Drug Abuse: None Lives with: Family Family History: Reviewed & Not Pertinent Patient has suicidal ideation: No Patient has homicidal ideation: No - Past Medical History Cardiac Medical History: Reports: Hx Coronary Artery Disease, Hx Heart Attack, Hx Hypercholesterolemia, Hx Hypertension Renal/ Medical History: Denies: Hx Peritoneal Dialysis Malignancy Medical History: Reports Hx Prostate Cancer Past Surgical History: Reports: Hx Appendectomy - 1955, Hx Cardiac Catheterization - 11/2015, Hx Cardiac Surgery, Hx Coronary Artery Bypass Graft - 1999, Hx Genitourinary Surgery - prostate;penile implant, Hx Orthopedic Surgery - back sugery 1984, Other - prostatectomy 1994, penile implant prosynthesis 1995, cateract R eye 2007 - Immunizations Hx Diphtheria, Pertussis, Tetanus Vaccination: Yes Hx Pneumococcal Vaccination: 12/21/12 Review of Systems - Review of Systems Constitutional: denies: Chills, Fever EENT: See HPI Cardiovascular: See HPI Respiratory: No symptoms reported Gastrointestinal: No symptoms reported Genitourinary: No symptoms reported Male Genitourinary: No symptoms reported Musculoskeletal: No symptoms reported Skin: No symptoms reported Hematologic/Lymphatic: No symptoms reported Neurological/Psychological: Weakness Physical Exam - Vital signs Vitals: Temp Pulse Resp BP Pulse Ox 97.6 F 58 L 16 86/49 L 98 12/02/16 16:41 12/02/16 16:41 12/02/16 16:41 12/02/16 16:41 12/02/16 16:41 Notes: Physical exam: GENERAL: 85-year-old man, frail appearing, he does appear confused. He is oriented 1 (he knows who he is, he was not able to answer the month and he thought he was in [facility]). HEAD: Atraumatic, normocephalic. EYES: Pupils equal round and reactive to light, extraocular movements intact, sclera anicteric, conjunctiva are normal. ENT: Dry mucous membranes. Limited range of motion of the oral cavity due to recent mandibular surgery. No significant swelling. NECK: Normal range of motion, supple without obvious mass large, nontender. LUNGS: Breath sounds clear to auscultation bilaterally and equal. No wheezes rales or rhonchi. HEART: Regular rate and rhythm without murmurs, rubs or gallops. ABDOMEN: Soft, normoactive bowel sounds. No tenderness to palpation. No guarding, no rebound. No masses appreciated. GROIN: Large right inguinal hernia, nontender. No erythema over the skin. EXTREMITIES: Normal range of motion, no pitting or edema. No clubbing or cyanosis. NEUROLOGICAL: Cranial nerves II through XII grossly intact. Normal speech, moving all extremities. PSYCH: Normal mood, normal affect. SKIN: Warm, Dry, normal turgor, no rashes or lesions noted. Course - Vital Signs Vital signs: Temp Pulse Resp BP Pulse Ox 98.4 F 59 L 20 116/79 98 12/03/16 00:15 12/03/16 00:15 12/03/16 00:15 12/03/16 00:15 12/03/16 00:15 - Laboratory Result Diagrams: 12/02/16 17:00 12/02/16 17:30 Laboratory results interpreted by me: 12/02/16 12/02/16 12/02/16 17:00 17:30 17:30 RBC 3.86 L Hgb 11.9 L Hct 35.1 L Potassium 6.1 H* BUN 81 H Creatinine 2.58 H Est GFR ( Amer) 29 L Est GFR (Non-Af Amer) 24 L Glucose 111 H Magnesium Creatine Kinase 31 L Urine Ketones TRACE H Urine Urobilinogen 2.0 H Urine Ascorbic Acid 40 H 12/02/16 17:30 RBC Hgb Hct Potassium BUN Creatinine Est GFR ( Amer) Est GFR (Non-Af Amer) Glucose Magnesium 2.7 H Creatine Kinase Urine Ketones Urine Urobilinogen Urine Ascorbic Acid - Diagnostic Test Radiology reviewed: Image reviewed, Reports reviewed - CT of the head shows no acute process. Chest x-ray shows no infiltrates - EKG Interpretation by Ga Rate: Normal Rhythm: NSR - EKG shows normal sinus rhythm with a ventricular rate of 61, first -degree AV block, left anterior hemiblock, no acute ST-T wave changes. QRS interval normal. 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 Brown Unit Admitted: IMCU Referrals: NICHELLE WOODS MD [Primary Care Provider] - Follow up as needed
[2016-12-02 18:55] LABS: ABSOLUTE EOSINOPHILS # (AUTO) 0.2 10^3/uL (0.0-0.6); ABSOLUTE MONOCYTES (AUTO) 0.5 10^3/uL (0.1-1.4); ABSOLUTE NEUT (AUTO) 4.8 10^3/uL (1.7-8.2); BASOPHILS % (AUTO) 0.7 % (0-2); EOSINOPHILS % (AUTO) 2.9 % (0-6); HEMATOCRIT 35.1 % (37.9-51.0); HEMOGLOBIN 11.9 g/dL (13.5-17.0); HGB HCT DIFFERENCE 0.6; LYMPHOCYTES % (AUTO) 15.5 % (13-45); MEAN CORPUSCULAR HEMOGLOBIN 30.8 pg (27.0-33.4); MEAN CORPUSCULAR HGB CONC 33.9 g/dL (32.0-36.0); MEAN CORPUSCULAR VOLUME 91 fl (80-97); MONOCYTES % (AUTO) 8.1 % (3-13); RED BLOOD COUNT 3.86 10^6/uL (4.35-5.55); SEGMENTED NEUTROPHILS % (AUTO) 72.8 % (42-78); WHITE BLOOD COUNT 6.6 10^3/uL (4.0-10.5)
[2016-12-02 18:59] LABS: APPEARANCE,URINE CLOUDY; BILIRUBIN,URINE NEGATIVE (NEGATIVE); GLUCOSE, URINE NEGATIVE (NEGATIVE); KETONES,URINE TRACE mg/dL (NEGATIVE); LEUKOCYTE ESTERASE,URINE NEGATIVE (NEGATIVE); NITRITE,URINE NEGATIVE (NEGATIVE); PROTEIN,URINE NEGATIVE (NEGATIVE); URINE SPECIFIC GRAVITY 1.027
--- NOTE | 2016-12-02 19:00 | RADIOLOGY REPORT (SQ) ---
EXAM DESCRIPTION: CHEST SINGLE VIEW COMPLETED DATE/TIME: 12/02/2016 6:52 pm REASON FOR STUDY: syncope COMPARISON: 06/27/2016 EXAM PARAMETERS: NUMBER OF VIEWS: One view. TECHNIQUE: Single frontal radiographic view of the chest acquired. RADIATION DOSE: NA LIMITATIONS: None. FINDINGS: LUNGS AND PLEURA: No opacities, masses or pneumothorax. No pleural effusion. MEDIASTINUM AND HILAR STRUCTURES: No masses. Contour normal. HEART AND VASCULAR STRUCTURES: Heart normal in size. Normal vasculature. BONES: No acute findings. HARDWARE: None in the chest. OTHER: No other significant finding. IMPRESSION: NO ACUTE RADIOGRAPHIC FINDING IN THE CHEST. TECHNICAL DOCUMENTATION: JOB ID: [id number]
[2016-12-02 19:13] LABS: ALANINE AMINOTRANSFERASE 27 U/L (21-72); ALBUMIN 4.1 g/dL (3.5-5.0); ALKALINE PHOSPHATASE 116 U/L (38-126); ANION GAP 11 (5-19); ASPARTATE AMINO TRANSFERASE 41 U/L (17-59); BILIRUBIN,DIRECT 0.4 mg/dL (0.0-0.4); BILIRUBIN,TOTAL 0.5 mg/dL (0.2-1.3); BLOOD UREA NITROGEN 81 mg/dL (7-20); CALCIUM 9.1 mg/dL (8.4-10.2); CARBON DIOXIDE 27 mmol/L (22-30); CHLORIDE 101 mmol/L (98-107); CREATINE KINASE 31 U/L (55-170); CREATININE RESULT 2.58 mg/dL (0.52-1.25); GLUCOSE 111 mg/dL (75-110); SODIUM 139.4 mmol/L (137-145); TOTAL PROTEIN 7.1 g/dL (6.3-8.2)
[2016-12-02 19:22] LABS: POTASSIUM 6.1 mmol/L (3.6-5.0)
[2016-12-02] MEDS ORDERED: SODIUM POLYSTYRENE SULFONATE 15 GM/60 ML PO ONE (19:23)
[2016-12-02] MEDS ORDERED: CALCIUM GLUCONATE 1000 MG/10 ML INJ IV ONE (19:24)
[2016-12-02] MEDS ORDERED: INSULIN REG, HUMAN 100 UNIT/ML 3 ML VIAL (PYX) IV ONE (19:24)
[2016-12-02] MEDS ORDERED: DEXTROSE 50%-WATER 25 GM/50 ML DISP.SYRIN IV ONE (19:24)
[2016-12-02 19:25] LABS: CREATINE KINASE MB 0.32 ng/mL (<4.55)
[2016-12-02 19:26] LABS: TROPONIN I < 0.012 ng/mL
--- NOTE | 2016-12-02 19:47 | RADIOLOGY REPORT (SQ) ---
EXAM DESCRIPTION: CT HEAD WITHOUT COMPLETED DATE/TIME: 12/02/2016 7:23 pm REASON FOR STUDY: syncope COMPARISON: 11/16/2016 TECHNIQUE: Axial images acquired through the brain without intravenous contrast. Images reviewed wi th bone, brain and subdural windows. Images stored on PACS. All CT scanners at this facility use dose modulation, iterative reconstruction, and/or weight based d osing when appropriate to reduce radiation dose to as low as reasonably achievable (ALARA). [facility]: Dose Right [facility]: CareDose [facility]: Dose Right [facility]: Teradose 4D [facility]: Smart [employer] RADIATION DOSE: Up-to-date CT equipment and radiation dose reduction techniques were employed. CTDIv ol: 64.6 mGy. DLP: 2068 mGy-cm. mGy. LIMITATIONS: None. FINDINGS: VENTRICLES: Prominent. CEREBRUM: No masses. No hemorrhage. No midline shift. Areas of low density in the white matter mos t likely due to chronic micro-vascular ischemic change. No evidence for acute infarction. CEREBELLUM: No masses. No hemorrhage. No alteration of density. No evidence for acute infarction. EXTRAAXIAL SPACES: Mild age-related involutional change. No fluid collections. No masses. ORBITS AND GLOBE: No intra- or extraconal masses. Normal contour of globe without masses. CALVARIUM: No fracture. PARANASAL SINUSES: No fluid or mucosal thickening. SOFT TISSUES: No mass or hematoma. OTHER: No other significant finding. IMPRESSION: MILD CHRONIC CHANGES OF ATROPHY AND MICROVASCULAR ISCHEMIA. NO ACUTE PROCESS. TECHNICAL DOCUMENTATION: JOB ID: [id number] Quality ID # [id number]: Final reports with documentation of one or more dose reduction techniques (e.g., Au tomated exposure control, adjustment of the mA and/or kV according to patient size, use of iterative reconstruction technique) 2010 [employer]- All Rights Reserved
--- NOTE | 2016-12-02 19:56 | EKG REPORT ---
SEVERITY:- ABNORMAL ECG - SINUS RHYTHM FIRST DEGREE AV BLOCK LEFT AXIS DEVIATION : Confirmed by: Alvaro Garcia 02-Dec-2016 19:55:49
[2016-12-02] MEDS ORDERED: ACETAMINOPHEN 325 MG TABLET PO PRN (20:53)
[2016-12-02] MEDS ORDERED: IPRATROPIUM/ALBUTEROL 0.5-2.5 MG/3 ML AMPUL NEB PRN (20:53)
[2016-12-02] MEDS ORDERED: NORMAL SALINE 1000 ML 1,000 ML IV SCH (21:00)
[2016-12-03] MEDS: ASPIRIN 81 MG TABLET, ENT COATED PO SCH ×2 (00:47→20:30)
[2016-12-03] MEDS: CARVEDILOL 12.5 MG TABLET PO SCH ×3 (00:49→20:26)
[2016-12-03] MEDS: HEPARIN SOD (PORCINE) 5,000 UNIT/ML 1 ML SYRINGE SUBCUT SCH ×4 (00:50→20:30)
--- NOTE | 2016-12-03 02:55 | PDOC H&P ---
History of Present Illness Admission Date/PCP: 12/02/16 20:53 NICHELLE WOODS, Patient complains of: Altered mental status History of Present Illness: GIL ROLDAN is a 85 year old male with a past medical history of coronary artery disease, Parkinson's disease, hypertension, recent fall with mandibular fracture requiring surgery in [place] 3 weeks ago resulting in limited p.o. intake. He is brought to the emergency room after his states that he was poorly responsive though denies loss of consciousness, limb shaking or incontinence. He is brought to the emergency room for evaluation where he is found to have hypotension, hyperkalemia, acute renal failure and dehydration. He is referred to the hospitalist for admission. Patient is awake and alert oriented 3 stating he feels somewhat better. Past Medical History Cardiac Medical History: Reports: Coronary Artery Disease, Myocardial Infarction , Hyperlipidema, Hypertension Past Surgical History Past Surgical History: Reports: Appendectomy - 1955, Cardiac Catheterization - 11/2015, Coronary Artery Bypass Graft - 1999, Orthopedic Surgery - back sugery 1984, Other - prostatectomy 1994, penile implant prosynthesis 1995, cateract R eye 2007 Social History Information Source: Patient, Relative Lives with: Family Smoking Status: Unknown if Ever Smoked Frequency of Alcohol Use: Occasional Hx Recreational Drug Use: No Drugs: None Hx Prescription Drug Abuse: No - Advance Directive Resuscitation Status: Full Code Family History Family History: CAD Parental Family History Reviewed: Yes Children Family History Reviewed: Yes Sibling(s) Family History Reviewed.: Yes Medication/Allergy Home Medications: Carbidopa/Levodopa [Carbidopa-Levodopa 10-100 Tab] 1.5 tab PO TID 06/27/16 Ezetimibe/Simvastatin [Vytorin 10-40 mg Tablet] 1 tab PO DAILY@1200 06/27/16 Isosorbide Mononitrate [Isosorbide Mononitrate ER] 30 mg PO QAM 06/27/16 Lisinopril 10 mg PO BID 06/27/16 Vitamin E [Natural Vitamin E] 1 cap PO DAILY@1200 06/27/16 Aspirin [Ecotrin 81 mg EC Tablet] 162 mg PO QHS 11/16/16 Carvedilol [Coreg 12.5 mg Tablet] 18.75 mg PO Q12 11/16/16 Allergies/Adverse Reactions: No Known Allergies Allergy (Verified 11/16/16 12:06) Review of Systems Constitutional: ABSENT: chills, fever(s), headache(s), weight gain, weight loss Eyes: ABSENT: visual disturbances Ears: ABSENT: hearing changes Cardiovascular: ABSENT: chest pain, dyspnea on exertion, edema, orthropnea, palpitations Respiratory: ABSENT: cough, hemoptysis Gastrointestinal: ABSENT: abdominal pain, constipation, diarrhea, hematemesis, hematochezia, nausea, vomiting Genitourinary: ABSENT: dysuria, hematuria Musculoskeletal: ABSENT: joint swelling Integumentary: ABSENT: rash, wounds Neurological: ABSENT: abnormal gait, abnormal speech, confusion, dizziness, focal weakness, syncope Psychiatric: ABSENT: anxiety, depression, homidical ideation, suicidal ideation Endocrine: ABSENT: cold intolerance, heat intolerance, polydipsia, polyuria Hematologic/Lymphatic: ABSENT: easy bleeding, easy bruising Physical Exam Vital Signs: Temp Pulse Resp BP Pulse Ox 98.4 F 59 L 20 116/79 98 12/03/16 00:15 12/03/16 00:15 12/03/16 00:15 12/03/16 00:15 12/03/16 00:15 Intake & Output 12/01/16 12/02/16 12/03/16 11:59 11:59 11:59 Weight 92.9 kg General appearance: PRESENT: no acute distress, well-developed, well-nourished Head exam: PRESENT: atraumatic, normocephalic Eye exam: PRESENT: conjunctiva pink, EOMI, PERRLA. ABSENT: scleral icterus Ear exam: PRESENT: normal external ear exam Mouth exam: PRESENT: moist, tongue midline Neck exam: ABSENT: carotid bruit, JVD, lymphadenopathy, thyromegaly Respiratory exam: PRESENT: clear to auscultation eduarda. ABSENT: rales, rhonchi, wheezes Cardiovascular exam: PRESENT: RRR. ABSENT: diastolic murmur, rubs, systolic murmur Pulses: PRESENT: normal dorsalis pedis pul Vascular exam: PRESENT: normal capillary refill GI/Abdominal exam: PRESENT: normal bowel sounds, soft. ABSENT: distended, guarding, mass, organolmegaly, rebound, tenderness Rectal exam: PRESENT: deferred Extremities exam: PRESENT: full ROM. ABSENT: calf tenderness, clubbing, pedal edema Neurological exam: PRESENT: alert, awake, oriented to person, oriented to place , oriented to time, oriented to situation, CN II-XII grossly intact. ABSENT: motor sensory deficit Psychiatric exam: PRESENT: appropriate affect, normal mood. ABSENT: homicidal ideation, suicidal ideation Skin exam: PRESENT: dry, intact, warm. ABSENT: cyanosis, rash Results Laboratory Results: 12/02/16 22:40 Troponin I < 0.012 Impressions: Chest X-Ray 12/02/16 18:38 IMPRESSION: NO ACUTE RADIOGRAPHIC FINDING IN THE CHEST. Head CT 12/02/16 18:46 IMPRESSION: MILD CHRONIC CHANGES OF ATROPHY AND MICROVASCULAR ISCHEMIA. NO ACUTE PROCESS. Assessment & Plan - Diagnosis (1) Hypotension Is this a current diagnosis for this admission?: Yes Plan: Appears secondary to hypovolemia and prerenal azotemia, IV fluid challenge initiated reevaluate with orthostatic blood pressures. Follow-up UA and chemistry. (2) Acute renal failure Is this a current diagnosis for this admission?: Yes Plan: Appears secondary to hypovolemia and prerenal azotemia IV fluid challenge reevaluate chemistry. (3) Hyperkalemia Is this a current diagnosis for this admission?: Yes Plan: Likely secondary to acute renal failure however the patient also complains of constipation he is receiving Kayexalate for the reevaluation of chemistry. - Time Time Spent: 50 to 70 Minutes - Inpatient Certification Medical Necessity: Need Close Monitoring Due to Risk of Patient Decompensation
[2016-12-03 05:55] LABS: ABSOLUTE EOSINOPHILS # (AUTO) 0.2 10^3/uL (0.0-0.6); ABSOLUTE LYMPHOCYTES (AUTO) 1.3 10^3/uL (0.5-4.7); ABSOLUTE MONOCYTES (AUTO) 0.4 10^3/uL (0.1-1.4); ABSOLUTE NEUT (AUTO) 3.4 10^3/uL (1.7-8.2); BASOPHILS % (AUTO) 0.9 % (0-2); EOSINOPHILS % (AUTO) 4.4 % (0-6); HEMATOCRIT 31.6 % (37.9-51.0); HEMOGLOBIN 10.6 g/dL (13.5-17.0); HGB HCT DIFFERENCE 0.2; LYMPHOCYTES % (AUTO) 24.8 % (13-45); MEAN CORPUSCULAR HEMOGLOBIN 30.2 pg (27.0-33.4); MEAN CORPUSCULAR HGB CONC 33.6 g/dL (32.0-36.0); MEAN CORPUSCULAR VOLUME 90 fl (80-97); MONOCYTES % (AUTO) 7.2 % (3-13); RED BLOOD COUNT 3.52 10^6/uL (4.35-5.55); SEGMENTED NEUTROPHILS % (AUTO) 62.7 % (42-78); WHITE BLOOD COUNT 5.4 10^3/uL (4.0-10.5)
[2016-12-03 06:09] LABS: ANION GAP 10 (5-19); BLOOD UREA NITROGEN 65 mg/dL (7-20); CALCIUM 8.5 mg/dL (8.4-10.2); CARBON DIOXIDE 23 mmol/L (22-30); CHLORIDE 105 mmol/L (98-107); CREATININE RESULT 1.59 mg/dL (0.52-1.25); GLUCOSE 80 mg/dL (75-110); SODIUM 137.6 mmol/L (137-145)
[2016-12-03] MEDS: CARBIDOPA/LEVODOPA 10-100 MG TABLET PO SCH ×3 (09:58→18:21)
[2016-12-03] MEDS: DOCUSATE SODIUM 100 MG CAPSULE PO SCH ×2 (09:59→18:21)
[2016-12-03] MEDS: DEXTROSE 5%-NORMAL SALINE 1,000 ML IV PRN ×2 (10:00→16:18)
--- NOTE | 2016-12-03 10:43 | PDOC PROGRESS REPORT ---
Subjective Progress Note for:: 12/03/16 Subjective:: Sleepy. No specific complaints. Physical Exam Vital Signs: Temp Pulse Resp BP Pulse Ox 98.2 F 59 L 19 145/59 H 96 12/03/16 07:32 12/03/16 07:32 12/03/16 07:32 12/03/16 07:32 12/03/16 07:32 Intake & Output 12/02/16 12/03/16 12/04/16 06:59 06:59 06:59 Intake Total 1200 Output Total 100 Balance 1100 Weight 92.9 kg General appearance: PRESENT: no acute distress, cooperative Head exam: PRESENT: atraumatic, normocephalic Respiratory exam: PRESENT: clear to auscultation eduarda. ABSENT: rales, rhonchi, wheezes Cardiovascular exam: PRESENT: RRR. ABSENT: diastolic murmur, rubs, systolic murmur GI/Abdominal exam: PRESENT: normal bowel sounds, soft. ABSENT: distended, guarding, mass, organolmegaly, rebound, tenderness Rectal exam: PRESENT: deferred Extremities exam: ABSENT: pedal edema Neurological exam: PRESENT: alert, awake Results Laboratory Results: 12/03/16 05:20 12/03/16 05:20 12/03/16 12/03/16 05:20 05:20 WBC 5.4 RBC 3.52 L Hgb 10.6 L Hct 31.6 L MCV 90 MCH 30.2 MCHC 33.6 RDW 13.0 Plt Count 172 Seg Neutrophils % 62.7 Lymphocytes % 24.8 Monocytes % 7.2 Eosinophils % 4.4 Basophils % 0.9 Absolute Neutrophils 3.4 Absolute Lymphocytes 1.3 Absolute Monocytes 0.4 Absolute Eosinophils 0.2 Absolute Basophils 0.0 Sodium 137.6 Potassium 5.0 D Chloride 105 Carbon Dioxide 23 Anion Gap 10 BUN 65 H Creatinine 1.59 H Est GFR ( Amer) 50 L Est GFR (Non-Af Amer) 42 L Glucose 80 Calcium 8.5 12/02/16 22:40 Troponin I < 0.012 Impressions: Chest X-Ray 12/02/16 18:38 IMPRESSION: NO ACUTE RADIOGRAPHIC FINDING IN THE CHEST. Head CT 12/02/16 18:46 IMPRESSION: MILD CHRONIC CHANGES OF ATROPHY AND MICROVASCULAR ISCHEMIA. NO ACUTE PROCESS. Assessment & Plan - Diagnosis (1) Acute renal failure Qualifiers: Acute renal failure type: unspecified Qualified Code(s): N17.9 - Acute kidney failure, unspecified Is this a current diagnosis for this admission?: Yes Plan: His creatinine has already improved overnight. This strongly supports the impression that he may be volume depleted. Recheck BMP in a.m. (2) HTN (hypertension) Qualifiers: Hypertension type: essential hypertension Qualified Code(s): I10 - Essential (primary) hypertension Is this a current diagnosis for this admission?: Yes Plan: His blood pressure started to come back up not he has been hydrated. Unfortunately, his creatinine is not back to baseline/normal. So I am reluctant to resume his MELISSA inhibitor and diuretic. Furthermore, he is bradycardic which limits the use of the beta-zoë. Recheck BMP in a.m. When his creatinine returns to normal, I will resume the MELISSA inhibitor. (3) Hyperkalemia Is this a current diagnosis for this admission?: Yes Plan: Resolved (4) Hypotension Is this a current diagnosis for this admission?: Yes Plan: Resolved (5) Parkinsons disease Is this a current diagnosis for this admission?: Yes Plan: Stable. Recommend PT evaluation. - Time Time Spent with patient: 25-34 minutes Medications reviewed and adjusted accordingly: Yes Anticipated discharge: Home - Inpatient Certification Based on my medical assessment, after consideration of the patient's comorbidities, presenting symptoms, or acuity I expect that the services needed warrant INPATIENT care.: Yes I certify that my determination is in accordance with my understanding of Medicare's requirements for reasonable and necessary INPATIENT services [42 CFR 412.3e].: Yes Medical Necessity: Need For IV Fluids
--- NOTE | 2016-12-03 11:02 | Physician Advisory Note ---
Physician Advisor ProgressNote .: Pursuant to the plan for [facility], I have reviewed the medical record for this patient. Physician Advisor Statement: If you agree that this dx is likely, please consider documentin. "possible Acute Tubular Necrosis causing ARF, due to hypotension" Thanks! [phone] - call or text if ?s -
[2016-12-04] MEDS: DEXTROSE 5%-NORMAL SALINE 1,000 ML IV PRN ×3 (00:01→14:39)
[2016-12-04 05:09] LABS: ABSOLUTE EOSINOPHILS # (AUTO) 0.2 10^3/uL (0.0-0.6); ABSOLUTE LYMPHOCYTES (AUTO) 1.1 10^3/uL (0.5-4.7); ABSOLUTE MONOCYTES (AUTO) 0.4 10^3/uL (0.1-1.4); ABSOLUTE NEUT (AUTO) 2.4 10^3/uL (1.7-8.2); BASOPHILS % (AUTO) 0.9 % (0-2); EOSINOPHILS % (AUTO) 5.5 % (0-6); HEMATOCRIT 30.8 % (37.9-51.0); HGB HCT DIFFERENCE 2.2; LYMPHOCYTES % (AUTO) 25.8 % (13-45); MEAN CORPUSCULAR HEMOGLOBIN 31.2 pg (27.0-33.4); MEAN CORPUSCULAR HGB CONC 35.8 g/dL (32.0-36.0); MEAN CORPUSCULAR VOLUME 87 fl (80-97); RED BLOOD COUNT 3.54 10^6/uL (4.35-5.55); SEGMENTED NEUTROPHILS % (AUTO) 58.8 % (42-78); WHITE BLOOD COUNT 4.1 10^3/uL (4.0-10.5)
[2016-12-04] MEDS: HEPARIN SOD (PORCINE) 5,000 UNIT/ML 1 ML SYRINGE SUBCUT SCH ×3 (05:10→22:34)
[2016-12-04 05:34] LABS: ALANINE AMINOTRANSFERASE 20 U/L (21-72); ALBUMIN 3.2 g/dL (3.5-5.0); ALKALINE PHOSPHATASE 92 U/L (38-126); ANION GAP 10 (5-19); ASPARTATE AMINO TRANSFERASE 16 U/L (17-59); BILIRUBIN,DIRECT 0.3 mg/dL (0.0-0.4); BILIRUBIN,TOTAL 0.6 mg/dL (0.2-1.3); CALCIUM 8.6 mg/dL (8.4-10.2); CARBON DIOXIDE 25 mmol/L (22-30); CHLORIDE 108 mmol/L (98-107); CREATININE RESULT 1.26 mg/dL (0.52-1.25); GLUCOSE 109 mg/dL (75-110); MAGNESIUM 1.9 mg/dL (1.6-2.3); POTASSIUM 4.7 mmol/L (3.6-5.0); SODIUM 143.2 mmol/L (137-145); TOTAL PROTEIN 5.9 g/dL (6.3-8.2)
[2016-12-04 05:47] LABS: BLOOD UREA NITROGEN 35 mg/dL (7-20)
--- NOTE | 2016-12-04 08:14 | PDOC PROGRESS REPORT ---
Subjective Progress Note for:: 12/04/16 Subjective:: The patient states to feel much better. He had a good dinner last night. He is tolerating IV fluids. He has received physical therapy. He still very unsteady on his feet. Discussed the DNR issues. The patient does not want CPR or life support. Will place patient on DNR status. Discussed the need for short-term rehab. Physical Exam Vital Signs: Temp Pulse Resp BP Pulse Ox 97.5 F 55 L 20 128/62 H 97 12/04/16 04:26 12/04/16 04:26 12/04/16 04:26 12/04/16 04:26 12/04/16 04:26 Intake & Output 12/03/16 12/04/16 12/05/16 06:59 06:59 06:59 Intake Total 1200 4126 Output Total 100 2550 Balance 1100 1576 Weight 92.9 kg 96 kg General appearance: PRESENT: mild distress Head exam: PRESENT: other Eye exam: PRESENT: conjunctival injection Teeth exam: PRESENT: dental tenderness Additional comments: Status post jaw fracture with multiple tooth fracture Neck exam: ABSENT: carotid bruit Respiratory exam: PRESENT: rhonchi Cardiovascular exam: PRESENT: +S1, +S2 Pulses: PRESENT: +1 pedal pulses bilateral GI/Abdominal exam: PRESENT: normal bowel sounds, soft Extremities exam: PRESENT: other Musculoskeletal exam: PRESENT: other Neurological exam: PRESENT: alert, awake, abnormal gait, other Additional comments: Parkinsonian tremor and shuffling gait Results Laboratory Results: 12/04/16 04:35 12/04/16 04:35 12/04/16 12/04/16 12/04/16 04:35 04:35 04:35 WBC 4.1 RBC 3.54 L Hgb 11.0 L Hct 30.8 L MCV 87 MCH 31.2 MCHC 35.8 RDW 13.0 Plt Count 147 L Seg Neutrophils % 58.8 Lymphocytes % 25.8 Monocytes % 9.0 Eosinophils % 5.5 Basophils % 0.9 Absolute Neutrophils 2.4 Absolute Lymphocytes 1.1 Absolute Monocytes 0.4 Absolute Eosinophils 0.2 Absolute Basophils 0.0 Sodium 143.2 Potassium 4.7 Chloride 108 H Carbon Dioxide 25 Anion Gap 10 BUN 35 H D Creatinine 1.26 H Est GFR ( Amer) > 60 Est GFR (Non-Af Amer) 55 L Glucose 109 Calcium 8.6 Magnesium 1.9 Total Bilirubin 0.6 AST 16 L ALT 20 L Alkaline Phosphatase 92 Total Protein 5.9 L Albumin 3.2 L TSH 0.81 12/02/16 22:40 Troponin I < 0.012 Impressions: Chest X-Ray 12/02/16 18:38 IMPRESSION: NO ACUTE RADIOGRAPHIC FINDING IN THE CHEST. Head CT 12/02/16 18:46 IMPRESSION: MILD CHRONIC CHANGES OF ATROPHY AND MICROVASCULAR ISCHEMIA. NO ACUTE PROCESS. Assessment & Plan - Diagnosis (1) Acute tubular necrosis Is this a current diagnosis for this admission?: Yes Plan: Continue IV hydration (2) Hyperkalemia Is this a current diagnosis for this admission?: Yes Plan: Continue IV hydration (3) Hypotension Is this a current diagnosis for this admission?: Yes Plan: Resolved with IV fluids. Will continue IV hydration (4) Parkinsons disease Is this a current diagnosis for this admission?: Yes Plan: Continue current medications. Will obtain physical therapy and consider rehab short-term (5) Dehydration Is this a current diagnosis for this admission?: Yes Plan: Most probable cause for encephalopathy and acute tubular necrosis with hypotension. (6) Mandibular fracture Is this a current diagnosis for this admission?: Yes Plan: Status post surgical repair. Most probable cause of not being able to eat or drink.
[2016-12-04] MEDS: DOCUSATE SODIUM 100 MG CAPSULE PO SCH ×2 (09:58→17:25)
[2016-12-04] MEDS: CARVEDILOL 12.5 MG TABLET PO SCH ×2 (09:58→22:32)
[2016-12-04] MEDS: CARBIDOPA/LEVODOPA 10-100 MG TABLET PO SCH ×3 (09:59→17:28)
[2016-12-04] MEDS: ASPIRIN 81 MG TABLET, ENT COATED PO SCH (22:32)
[2016-12-05] MEDS: DEXTROSE 5%-NORMAL SALINE 1,000 ML IV PRN (05:06)
[2016-12-05] MEDS: HEPARIN SOD (PORCINE) 5,000 UNIT/ML 1 ML SYRINGE SUBCUT SCH ×2 (05:08→14:36)
[2016-12-05 05:33] LABS: ABSOLUTE EOSINOPHILS # (AUTO) 0.2 10^3/uL (0.0-0.6); ABSOLUTE LYMPHOCYTES (AUTO) 0.8 10^3/uL (0.5-4.7); ABSOLUTE MONOCYTES (AUTO) 0.4 10^3/uL (0.1-1.4); ABSOLUTE NEUT (AUTO) 3.9 10^3/uL (1.7-8.2); BASOPHILS % (AUTO) 0.5 % (0-2); EOSINOPHILS % (AUTO) 3.1 % (0-6); HEMATOCRIT 32.9 % (37.9-51.0); HEMOGLOBIN 11.4 g/dL (13.5-17.0); HGB HCT DIFFERENCE 1.3; LYMPHOCYTES % (AUTO) 15.9 % (13-45); MEAN CORPUSCULAR HEMOGLOBIN 30.6 pg (27.0-33.4); MEAN CORPUSCULAR HGB CONC 34.7 g/dL (32.0-36.0); MEAN CORPUSCULAR VOLUME 88 fl (80-97); MONOCYTES % (AUTO) 6.8 % (3-13); RED BLOOD COUNT 3.74 10^6/uL (4.35-5.55); SEGMENTED NEUTROPHILS % (AUTO) 73.7 % (42-78); WHITE BLOOD COUNT 5.3 10^3/uL (4.0-10.5)
[2016-12-05 05:52] LABS: ALANINE AMINOTRANSFERASE 23 U/L (21-72); ALBUMIN 3.3 g/dL (3.5-5.0); ALKALINE PHOSPHATASE 104 U/L (38-126); ANION GAP 11 (5-19); ASPARTATE AMINO TRANSFERASE 17 U/L (17-59); BILIRUBIN,DIRECT 0.3 mg/dL (0.0-0.4); BILIRUBIN,TOTAL 0.7 mg/dL (0.2-1.3); BLOOD UREA NITROGEN 17 mg/dL (7-20); CALCIUM 8.7 mg/dL (8.4-10.2); CARBON DIOXIDE 21 mmol/L (22-30); CHLORIDE 109 mmol/L (98-107); CREATININE RESULT 1.05 mg/dL (0.52-1.25); GLUCOSE 107 mg/dL (75-110); POTASSIUM 4.4 mmol/L (3.6-5.0); SODIUM 140.9 mmol/L (137-145)
--- NOTE | 2016-12-05 09:16 | PDOC DISCHARGE SUMMARY ---
General - Admit/Disc Date/PCP Admission Date/Primary Care Provider: 12/02/16 20:53 NICHELLE WOODS, Discharge Date: 12/05/16 - Discharge Diagnosis (1) Acute tubular necrosis Is this a current diagnosis for this admission?: Yes Summary: Improved with rehydration (2) Hyperkalemia Is this a current diagnosis for this admission?: Yes Summary: Resolved with IV fluids (3) Hypotension Is this a current diagnosis for this admission?: Yes Summary: Resolved with IV fluids (4) Parkinsons disease Is this a current diagnosis for this admission?: Yes (5) Dehydration Is this a current diagnosis for this admission?: Yes Summary: Resolved (6) Mandibular fracture Is this a current diagnosis for this admission?: Yes Summary: Improved. Patient is status post surgical repair and will need a soft/full liquid diet (7) CAD (coronary artery disease) Summary: Stable continue current medications (8) Muscular deconditioning Is this a current diagnosis for this admission?: Yes Summary: Will require physical therapy twice a day to prevent any further falls - Additional Information Resuscitation Status: Full Code Home Medications: Carbidopa/Levodopa [Carbidopa-Levodopa 10-100 Tab] 1.5 tab PO TID 06/27/16 Ezetimibe/Simvastatin [Vytorin 10-40 mg Tablet] 1 tab PO DAILY@1200 06/27/16 Isosorbide Mononitrate [Isosorbide Mononitrate ER] 30 mg PO QAM 06/27/16 Lisinopril 10 mg PO BID 06/27/16 Vitamin E [Natural Vitamin E] 1 cap PO DAILY@1200 06/27/16 Aspirin [Ecotrin 81 mg EC Tablet] 162 mg PO QHS 11/16/16 Carvedilol [Coreg 12.5 mg Tablet] 18.75 mg PO Q12 11/16/16 History of Present Illness History of Present Illness: GIL ROLDAN is a 85 year old male Hospital Course Hospital Course: The patient did well after the hospitalization. His kidney function has improved with hydration. His mental status has improved with hydration. He was able to tolerate a full liquid diet well. IV fluids have been stopped. He was seen by physical therapy. The recommendation was to continue with physical therapy at the rehab because of recent fall and severe deconditioning. The patient does have severe Parkinson' s which is being controlled with medications. Physical Exam Vital Signs: Temp Pulse Resp BP Pulse Ox 98.8 F 69 20 160/75 H 98 12/05/16 04:03 12/05/16 07:00 12/05/16 04:03 12/05/16 04:03 12/05/16 04:03 Intake & Output 12/04/16 12/05/16 12/06/16 06:59 06:59 06:59 Intake Total 4126 4242 Output Total 2550 1850 Balance 1576 2392 Weight 96 kg 98 kg General appearance: PRESENT: no acute distress Eye exam: PRESENT: conjunctival injection Neck exam: ABSENT: carotid bruit Respiratory exam: PRESENT: clear to auscultation eduarda Cardiovascular exam: PRESENT: RRR, +S1, +S2 Pulses: PRESENT: +1 pedal pulses bilateral GI/Abdominal exam: PRESENT: normal bowel sounds, soft Extremities exam: PRESENT: other Musculoskeletal exam: PRESENT: other Neurological exam: PRESENT: abnormal gait Psychiatric exam: PRESENT: flat affect Results Laboratory Results: 12/05/16 05:11 12/05/16 05:11 12/05/16 12/05/16 05:11 05:11 WBC 5.3 RBC 3.74 L Hgb 11.4 L Hct 32.9 L MCV 88 MCH 30.6 MCHC 34.7 RDW 13.0 Plt Count 152 Seg Neutrophils % 73.7 Lymphocytes % 15.9 Monocytes % 6.8 Eosinophils % 3.1 Basophils % 0.5 Absolute Neutrophils 3.9 Absolute Lymphocytes 0.8 Absolute Monocytes 0.4 Absolute Eosinophils 0.2 Absolute Basophils 0.0 Sodium 140.9 Potassium 4.4 Chloride 109 H Carbon Dioxide 21 L Anion Gap 11 BUN 17 Creatinine 1.05 Est GFR ( Amer) > 60 Est GFR (Non-Af Amer) > 60 Glucose 107 Calcium 8.7 Total Bilirubin 0.7 AST 17 ALT 23 Alkaline Phosphatase 104 Total Protein 6.0 L Albumin 3.3 L 12/02/16 22:40 Troponin I < 0.012 Impressions: Chest X-Ray 12/02/16 18:38 IMPRESSION: NO ACUTE RADIOGRAPHIC FINDING IN THE CHEST. Head CT 12/02/16 18:46 IMPRESSION: MILD CHRONIC CHANGES OF ATROPHY AND MICROVASCULAR ISCHEMIA. NO ACUTE PROCESS.
[2016-12-05] MEDS: CARBIDOPA/LEVODOPA 10-100 MG TABLET PO SCH ×2 (10:03→14:44)
[2016-12-05] MEDS: DOCUSATE SODIUM 100 MG CAPSULE PO SCH (10:04)
[2016-12-05] MEDS: CARVEDILOL 12.5 MG TABLET PO SCH (10:04)
[2016-12-05 11:42] VITALS: BP 126/60
== END 2016-12-05 15:47 | DRG 684 ==
LOC: ER 16:30 → EH 20:53 → UNDOADMIN 21:08 → 3S 23:11
PROVIDERS: ADMIT Internal Medicine; ATTEND Internal Medicine
DX: N17.0 Acute kidney failure with tubular necrosis (principal); E87.5 Hyperkalemia; I95.9 Hypotension, unspecified; G20 Parkinson's disease; E86.0 Dehydration; Z66 Do not resuscitate; I25.10 Atherosclerotic heart disease of native coronary artery without angina pectoris; I10 Essential (primary) hypertension; E78.00 Pure hypercholesterolemia, unspecified; R55 Syncope and collapse; S02.609D Fracture of mandible, unspecified, subsequent encounter for fracture with routine healing; S06.9X0D Unspecified intracranial injury without loss of consciousness, subsequent encounter; I25.2 Old myocardial infarction; Z85.46 Personal history of malignant neoplasm of prostate; Z79.82 Long term (current) use of aspirin; Z79.899 Other long term (current) drug therapy; W19.XXXD Unspecified fall, subsequent encounter
CPT/HCPCS: 36415; 70450; 71010; 80048; 80053; 81001; 82550; 82553; 83735; 84443; 84484; 85025; 93005; 93010; 96374; 99291; G8978-GP; G8979-GP; J0610; J1644; J1815; J3490; J7030; J7040

== ENCOUNTER → 2017-04-01 | Outpatient (CLI) | payer BC ==
[2017-04-01 13:08] LABS: ALANINE AMINOTRANSFERASE 19 U/L (21-72); ALBUMIN 4.1 g/dL (3.5-5.0); ALKALINE PHOSPHATASE 68 U/L (38-126); ANION GAP 11 (5-19); ASPARTATE AMINO TRANSFERASE 18 U/L (17-59); BILIRUBIN,DIRECT 0.3 mg/dL (0.0-0.4); BILIRUBIN,TOTAL 0.6 mg/dL (0.2-1.3); BLOOD UREA NITROGEN 26 mg/dL (7-20); CALCIUM 9.8 mg/dL (8.4-10.2); CARBON DIOXIDE 28 mmol/L (22-30); CHLORIDE 106 mmol/L (98-107); CHOLESTEROL 114.78 mg/dL (0-200); GLUCOSE 101 mg/dL (75-110); POTASSIUM 4.9 mmol/L (3.6-5.0); SODIUM 144.7 mmol/L (137-145); TOTAL PROTEIN 6.8 g/dL (6.3-8.2); TRIGLYCERIDES 65 mg/dL (<150)
[2017-04-01 13:19] LABS: DIRECT LDL 54 mg/dL (<100)
== END ==
LOC: OD 11:58
PROVIDERS: ATTEND Internal Medicine Cardiovascular Disease
DX: E78.00 Pure hypercholesterolemia, unspecified (principal); I10 Essential (primary) hypertension; I49.49 Other premature depolarization; Z79.899 Other long term (current) drug therapy
CPT/HCPCS: 36415; 80048; 80061; 80076

== ENCOUNTER → 2017-04-20 | Outpatient (CLI) | payer BC ==
[2017-04-20 13:47] LABS: ANION GAP 9 (5-19); BLOOD UREA NITROGEN 20 mg/dL (7-20); CALCIUM 9.8 mg/dL (8.4-10.2); CARBON DIOXIDE 28 mmol/L (22-30); CHLORIDE 104 mmol/L (98-107); GLUCOSE 91 mg/dL (75-110); POTASSIUM 4.7 mmol/L (3.6-5.0)
== END ==
LOC: OD 12:09
PROVIDERS: ATTEND Internal Medicine Cardiovascular Disease
DX: I10 Essential (primary) hypertension (principal); I49.49 Other premature depolarization; Z79.899 Other long term (current) drug therapy
CPT/HCPCS: 36415; 80048

== ENCOUNTER → 2017-11-18 | Outpatient (CLI) | payer MEDICARE, BC ==
[2017-11-18 11:13] LABS: ALANINE AMINOTRANSFERASE 28 U/L (21-72); ALBUMIN 3.9 g/dL (3.5-5.0); ALKALINE PHOSPHATASE 70 U/L (38-126); ANION GAP 9 (5-19); ASPARTATE AMINO TRANSFERASE 26 U/L (17-59); BILIRUBIN,DIRECT 0.3 mg/dL (0.0-0.4); BILIRUBIN,TOTAL 0.6 mg/dL (0.2-1.3); BLOOD UREA NITROGEN 19 mg/dL (7-20); CALCIUM 8.8 mg/dL (8.4-10.2); CARBON DIOXIDE 29 mmol/L (22-30); CHLORIDE 105 mmol/L (98-107); CHOLESTEROL 114.86 mg/dL (0-200); GLUCOSE 90 mg/dL (75-110); POTASSIUM 4.8 mmol/L (3.6-5.0); SODIUM 143.1 mmol/L (137-145); TOTAL PROTEIN 6.9 g/dL (6.3-8.2); TRIGLYCERIDES 53 mg/dL (<150)
[2017-11-18 11:23] LABS: DIRECT LDL 49 mg/dL (<100)
== END ==
LOC: OD 10:00
PROVIDERS: ATTEND Internal Medicine Cardiovascular Disease
DX: I10 Essential (primary) hypertension (principal); E78.00 Pure hypercholesterolemia, unspecified; Z79.899 Other long term (current) drug therapy
CPT/HCPCS: 36415; 80048; 80061; 80076

== ENCOUNTER → 2018-03-18 | Outpatient (CLI) | payer MEDICARE, BC ==
[2018-03-18 11:32] LABS: ABSOLUTE EOSINOPHILS # (AUTO) 0.2 10^3/uL (0.0-0.6); ABSOLUTE LYMPHOCYTES (AUTO) 0.7 10^3/uL (0.5-4.7); ABSOLUTE MONOCYTES (AUTO) 0.3 10^3/uL (0.1-1.4); ABSOLUTE NEUT (AUTO) 2.8 10^3/uL (1.7-8.2); BASOPHILS % (AUTO) 0.8 % (0-2); EOSINOPHILS % (AUTO) 5.4 % (0-6); HEMATOCRIT 33.8 % (37.9-51.0); HEMOGLOBIN 11.4 g/dL (13.5-17.0); LYMPHOCYTES % (AUTO) 16.7 % (13-45); MEAN CORPUSCULAR HEMOGLOBIN 30.3 pg (27.0-33.4); MEAN CORPUSCULAR HGB CONC 33.7 g/dL (32.0-36.0); MEAN CORPUSCULAR VOLUME 90 fl (80-97); MONOCYTES % (AUTO) 8.2 % (3-13); PLATELET COUNT 136 10^3/uL (150-450); RED BLOOD COUNT 3.76 10^6/uL (4.35-5.55); SEGMENTED NEUTROPHILS % (AUTO) 68.9 % (42-78); TOTAL CELLS COUNTED % (AUTO) 100 %; WHITE BLOOD COUNT 4.1 10^3/uL (4.0-10.5)
[2018-03-18 11:54] LABS: ALANINE AMINOTRANSFERASE 9 U/L (21-72); ALBUMIN 3.8 g/dL (3.5-5.0); ALKALINE PHOSPHATASE 59 U/L (38-126); ANION GAP 7 (5-19); ASPARTATE AMINO TRANSFERASE 20 U/L (17-59); BILIRUBIN,DIRECT 0.4 mg/dL (0.0-0.4); BLOOD UREA NITROGEN 25 mg/dL (7-20); CALCIUM 9.1 mg/dL (8.4-10.2); CARBON DIOXIDE 31 mmol/L (22-30); CHLORIDE 104 mmol/L (98-107); CHOLESTEROL 93.06 mg/dL (0-200); GLUCOSE 99 mg/dL (75-110); POTASSIUM 4.1 mmol/L (3.6-5.0); SODIUM 141.6 mmol/L (137-145); TOTAL PROTEIN 6.5 g/dL (6.3-8.2); TRIGLYCERIDES 53 mg/dL (<150)
[2018-03-18 12:06] LABS: DIRECT LDL 53 mg/dL (<100)
== END ==
LOC: OD 10:03
PROVIDERS: ATTEND Internal Medicine
DX: I25.10 Atherosclerotic heart disease of native coronary artery without angina pectoris (principal); I10 Essential (primary) hypertension; R53.83 Other fatigue; E78.5 Hyperlipidemia, unspecified
CPT/HCPCS: 36415; 80053; 80061; 84443; 85025

== ENCOUNTER → 2018-03-29 | Outpatient (CLI) | payer MEDICARE, BC ==
--- NOTE | 2018-03-29 19:43 | RADIOLOGY REPORT (SQ) ---
EXAM DESCRIPTION: VENOUS UNILATERAL LOWER COMPLETED DATE/TIME: 03/29/2018 7:29 pm REASON FOR STUDY: PAIN IN LEFT LEG M79.662 PAIN IN LEFT LOWER LEG M79.89 OTHER SPECIFIED SOFT TISS UE DISORDERS COMPARISON: None. TECHNIQUE: Dynamic and static mejias scale and color images acquired of the left leg venous system. Se lected spectral images acquired with additional compression and augmentation maneuvers. The contralat eral common femoral vein and saphenofemoral junction were also imaged. Images stored on PACS. LIMITATIONS: None. FINDINGS: COMMON FEMORAL: Normal phasicity, compression and augmentation. No visualized echogenic ma terial on mejias scale. No defects on color images. FEMORAL: Normal compression and augmentation. No visualized echogenic material on mejias scale. No defe cts on color images. POPLITEAL: Normal compression, augmentation. No visualized echogenic material on mejias scale. No defec ts on color images. CALF VESSELS: Normal compression, augmentation. No visualized echogenic material on mejias scale. No de fects on color images. GSV and SSV: Normal compression, augmentation. No visualized echogenic material on mejias scale. No def ects on color images. ANY DEEP VENOUS INSUFFICIENCY: Not evaluated. ANY EVIDENCE OF POPLITEAL CYST: No. OTHER: No other significant finding. CONTRALATERAL COMMON FEMORAL VEIN AND SAPHENOFEMORAL JUNCTION: Normal phasicity, compression and augmentation. No visualized echogenic material on mejias scale. No de fects on color images. IMPRESSION: NO EVIDENCE DVT OR SVT IN THE LEFT LEG. TECHNICAL DOCUMENTATION: JOB ID: [id number] [email or web address] Rights Reserved Reading location - IP/workstation name: [email or web address]
== END ==
LOC: SP 20:22
PROVIDERS: ATTEND Internal Medicine
DX: M79.662 Pain in left lower leg (principal); M79.89 Other specified soft tissue disorders
CPT/HCPCS: 93971

== ENCOUNTER → 2018-05-10 | Outpatient (CLI) | payer MEDICARE, BC ==
[2018-05-10 12:03] LABS: ALANINE AMINOTRANSFERASE 29 U/L (21-72); ALBUMIN 4.2 g/dL (3.5-5.0); ALKALINE PHOSPHATASE 64 U/L (38-126); ANION GAP 7 (5-19); ASPARTATE AMINO TRANSFERASE 30 U/L (17-59); BILIRUBIN,DIRECT 0.1 mg/dL (0.0-0.4); BILIRUBIN,TOTAL 0.8 mg/dL (0.2-1.3); BLOOD UREA NITROGEN 30 mg/dL (7-20); CALCIUM 9.3 mg/dL (8.4-10.2); CARBON DIOXIDE 30 mmol/L (22-30); CHLORIDE 105 mmol/L (98-107); CHOLESTEROL 101.67 mg/dL (0-200); GLUCOSE 99 mg/dL (75-110); POTASSIUM 4.6 mmol/L (3.6-5.0); SODIUM 142.2 mmol/L (137-145); TOTAL PROTEIN 6.7 g/dL (6.3-8.2); TRIGLYCERIDES 63 mg/dL (<150)
[2018-05-10 12:14] LABS: DIRECT LDL 52 mg/dL (<100)
== END ==
LOC: OD 11:08
PROVIDERS: ATTEND Internal Medicine Cardiovascular Disease
DX: I10 Essential (primary) hypertension (principal); E78.00 Pure hypercholesterolemia, unspecified; Z79.899 Other long term (current) drug therapy
CPT/HCPCS: 36415; 80048; 80061; 80076; 84443

== ENCOUNTER → 2018-06-08 | Outpatient (CLI) | payer MEDICARE, BC ==
[2018-06-08 09:54] LABS: APPEARANCE,URINE CLEAR; BILIRUBIN,URINE NEGATIVE (NEGATIVE); COLOR,URINE YELLOW; GLUCOSE, URINE NEGATIVE (NEGATIVE); KETONES,URINE NEGATIVE (NEGATIVE); LEUKOCYTE ESTERASE,URINE NEGATIVE (NEGATIVE); NITRITE,URINE NEGATIVE (NEGATIVE); PROTEIN,URINE NEGATIVE (NEGATIVE); URINE SPECIFIC GRAVITY 1.012; UROBILINOGEN,URINE NEGATIVE mg/dL (<2.0)
[2018-06-08 10:00] LABS: HEMATOCRIT 35.6 % (37.9-51.0); HEMOGLOBIN 12.1 g/dL (13.5-17.0); MEAN CORPUSCULAR HEMOGLOBIN 29.8 pg (27.0-33.4); MEAN CORPUSCULAR HGB CONC 34.1 g/dL (32.0-36.0); MEAN CORPUSCULAR VOLUME 88 fl (80-97); PLATELET COUNT 144 10^3/uL (150-450); RED BLOOD COUNT 4.07 10^6/uL (4.35-5.55); RED CELL DISTRIBUTION WIDTH 14.3 % (11.5-14.0); WHITE BLOOD COUNT 3.8 10^3/uL (4.0-10.5)
[2018-06-08 10:21] LABS: ANION GAP 9 (5-19); BLOOD UREA NITROGEN 24 mg/dL (7-20); CALCIUM 9.6 mg/dL (8.4-10.2); CARBON DIOXIDE 30 mmol/L (22-30); CHLORIDE 102 mmol/L (98-107); GLUCOSE 101 mg/dL (75-110); POTASSIUM 4.1 mmol/L (3.6-5.0); SODIUM 140.6 mmol/L (137-145)
== END ==
LOC: LAB 09:23
PROVIDERS: ATTEND Internal Medicine Cardiovascular Disease
DX: I48.91 Unspecified atrial fibrillation (principal)
CPT/HCPCS: 36415; 80048; 81001; 82272; 83735; 84443; 85027

== ENCOUNTER → 2018-07-09 | Outpatient (CLI) | payer MEDICARE, BC ==
[2018-07-09 11:24] LABS: APPEARANCE,URINE SLIGHTLY-CLOUDY; BILIRUBIN,URINE SMALL (NEGATIVE); COLOR,URINE DARK YELLOW; GLUCOSE, URINE NEGATIVE (NEGATIVE); KETONES,URINE TRACE mg/dL (NEGATIVE); LEUKOCYTE ESTERASE,URINE NEGATIVE (NEGATIVE); NITRITE,URINE NEGATIVE (NEGATIVE); PROTEIN,URINE 30 mg/dL (NEGATIVE); URINE SPECIFIC GRAVITY 1.026
[2018-07-09 11:28] LABS: HEMATOCRIT 36.3 % (37.9-51.0); HEMOGLOBIN 12.2 g/dL (13.5-17.0); MEAN CORPUSCULAR HGB CONC 33.6 g/dL (32.0-36.0); MEAN CORPUSCULAR VOLUME 89 fl (80-97); PLATELET COUNT 169 10^3/uL (150-450); RED BLOOD COUNT 4.07 10^6/uL (4.35-5.55); RED CELL DISTRIBUTION WIDTH 14.5 % (11.5-14.0); WHITE BLOOD COUNT 4.4 10^3/uL (4.0-10.5)
== END ==
LOC: OD 10:10
PROVIDERS: ATTEND Internal Medicine Cardiovascular Disease
DX: D64.9 Anemia, unspecified (principal); R31.9 Hematuria, unspecified
CPT/HCPCS: 36415; 81001; 85027

== ENCOUNTER → 2018-08-25 | Outpatient (CLI) | payer MEDICARE, BC ==
[2018-08-25 13:42] LABS: HEMATOCRIT 35.4 % (37.9-51.0); HEMOGLOBIN 11.9 g/dL (13.5-17.0); MEAN CORPUSCULAR HEMOGLOBIN 29.6 pg (27.0-33.4); MEAN CORPUSCULAR HGB CONC 33.6 g/dL (32.0-36.0); MEAN CORPUSCULAR VOLUME 88 fl (80-97); PLATELET COUNT 169 10^3/uL (150-450); RED BLOOD COUNT 4.03 10^6/uL (4.35-5.55); RED CELL DISTRIBUTION WIDTH 14.1 % (11.5-14.0); WHITE BLOOD COUNT 3.9 10^3/uL (4.0-10.5)
[2018-08-25 13:57] LABS: APPEARANCE,URINE CLEAR; BILIRUBIN,URINE NEGATIVE (NEGATIVE); COLOR,URINE YELLOW; GLUCOSE, URINE NEGATIVE (NEGATIVE); KETONES,URINE NEGATIVE (NEGATIVE); LEUKOCYTE ESTERASE,URINE NEGATIVE (NEGATIVE); NITRITE,URINE NEGATIVE (NEGATIVE); PROTEIN,URINE NEGATIVE (NEGATIVE); URINE SPECIFIC GRAVITY 1.009; UROBILINOGEN,URINE NEGATIVE mg/dL (<2.0)
[2018-08-25 14:05] LABS: ALANINE AMINOTRANSFERASE 13 U/L (21-72); ALBUMIN 4.1 g/dL (3.5-5.0); ALKALINE PHOSPHATASE 68 U/L (38-126); ANION GAP 10 (5-19); ASPARTATE AMINO TRANSFERASE 31 U/L (17-59); BILIRUBIN,DIRECT 0.3 mg/dL (0.0-0.4); BILIRUBIN,TOTAL 0.8 mg/dL (0.2-1.3); BLOOD UREA NITROGEN 30 mg/dL (7-20); CALCIUM 9.4 mg/dL (8.4-10.2); CARBON DIOXIDE 30 mmol/L (22-30); CHLORIDE 100 mmol/L (98-107); GLUCOSE 102 mg/dL (75-110); POTASSIUM 4.8 mmol/L (3.6-5.0); SODIUM 140.4 mmol/L (137-145); TOTAL PROTEIN 6.6 g/dL (6.3-8.2)
== END ==
LOC: OD 12:04
PROVIDERS: ATTEND Internal Medicine Cardiovascular Disease
DX: I48.91 Unspecified atrial fibrillation (principal); Z79.01 Long term (current) use of anticoagulants; Z79.899 Other long term (current) drug therapy
CPT/HCPCS: 36415; 80048; 80076; 81001; 82272; 85027; 85730

== ENCOUNTER → 2018-10-04 | Outpatient (CLI) | payer MEDICARE, BC ==
[2018-10-04 12:24] LABS: ANION GAP 9 (5-19); BLOOD UREA NITROGEN 20 mg/dL (7-20); CALCIUM 9.4 mg/dL (8.4-10.2); CARBON DIOXIDE 29 mmol/L (22-30); CHLORIDE 102 mmol/L (98-107); GLUCOSE 94 mg/dL (75-110); POTASSIUM 4.7 mmol/L (3.6-5.0); SODIUM 139.7 mmol/L (137-145)
== END ==
LOC: OD 11:07
PROVIDERS: ATTEND Internal Medicine Cardiovascular Disease
DX: I12.9 Hypertensive chronic kidney disease with stage 1 through stage 4 chronic kidney disease, or unspecified chronic kidney disease (principal); N18.3 Chronic kidney disease, stage 3 (moderate); R06.00 Dyspnea, unspecified
CPT/HCPCS: 36415; 80048; 83880

== ENCOUNTER → 2018-10-18 | Outpatient (CLI) | payer MEDICARE, BC ==
[2018-10-18 12:28] LABS: ANION GAP 8 (5-19); BLOOD UREA NITROGEN 25 mg/dL (7-20); CALCIUM 9.4 mg/dL (8.4-10.2); CARBON DIOXIDE 31 mmol/L (22-30); CHLORIDE 101 mmol/L (98-107); GLUCOSE 92 mg/dL (75-110)
[2018-10-18 12:29] LABS: POTASSIUM 4.3 mmol/L (3.6-5.0)
== END ==
LOC: OD 10:49
PROVIDERS: ATTEND Internal Medicine Cardiovascular Disease
DX: N18.3 Chronic kidney disease, stage 3 (moderate) (principal); R60.9 Edema, unspecified; R06.00 Dyspnea, unspecified
CPT/HCPCS: 36415; 80048; 83880

== ENCOUNTER → 2018-11-09 | Outpatient (CLI) | payer MEDICARE, BC ==
[2018-11-09 09:51] LABS: ANION GAP 11 (5-19); BLOOD UREA NITROGEN 35 mg/dL (7-20); CALCIUM 9.2 mg/dL (8.4-10.2); CARBON DIOXIDE 28 mmol/L (22-30); CHLORIDE 102 mmol/L (98-107); GLUCOSE 100 mg/dL (75-110); POTASSIUM 4.7 mmol/L (3.6-5.0)
== END ==
LOC: OD 08:41
PROVIDERS: ATTEND Internal Medicine Cardiovascular Disease
DX: N18.3 Chronic kidney disease, stage 3 (moderate) (principal); R60.9 Edema, unspecified; R06.02 Shortness of breath
CPT/HCPCS: 36415; 80048; 83880

== ENCOUNTER → 2018-11-29 | Outpatient (CLI) | payer MEDICARE, BC ==
[2018-11-29 12:17] LABS: HEMATOCRIT 36.5 % (37.9-51.0); HEMOGLOBIN 12.2 g/dL (13.5-17.0); MEAN CORPUSCULAR HEMOGLOBIN 29.8 pg (27.0-33.4); MEAN CORPUSCULAR HGB CONC 33.4 g/dL (32.0-36.0); MEAN CORPUSCULAR VOLUME 89 fl (80-97); PLATELET COUNT 144 10^3/uL (150-450); RED CELL DISTRIBUTION WIDTH 14.4 % (11.5-14.0); WHITE BLOOD COUNT 4.3 10^3/uL (4.0-10.5)
[2018-11-29 12:31] LABS: APPEARANCE,URINE CLEAR; BILIRUBIN,URINE NEGATIVE (NEGATIVE); COLOR,URINE YELLOW; GLUCOSE, URINE NEGATIVE (NEGATIVE); KETONES,URINE TRACE mg/dL (NEGATIVE); LEUKOCYTE ESTERASE,URINE NEGATIVE (NEGATIVE); NITRITE,URINE NEGATIVE (NEGATIVE); PROTEIN,URINE NEGATIVE (NEGATIVE); URINE SPECIFIC GRAVITY 1.019; UROBILINOGEN,URINE NEGATIVE mg/dL (<2.0)
[2018-11-29 12:40] LABS: ANION GAP 9 (5-19); BLOOD UREA NITROGEN 35 mg/dL (7-20); CALCIUM 9.7 mg/dL (8.4-10.2); CARBON DIOXIDE 30 mmol/L (22-30); CHLORIDE 101 mmol/L (98-107); GLUCOSE 106 mg/dL (75-110); POTASSIUM 4.9 mmol/L (3.6-5.0)
[2018-11-29 12:41] LABS: ALBUMIN 4.2 g/dL (3.5-5.0); ALKALINE PHOSPHATASE 68 U/L (38-126); ASPARTATE AMINO TRANSFERASE 28 U/L (17-59); BILIRUBIN,DIRECT 0.2 mg/dL (0.0-0.4); BILIRUBIN,TOTAL 0.8 mg/dL (0.2-1.3); TOTAL PROTEIN 7.2 g/dL (6.3-8.2)
== END ==
LOC: OD 11:26
PROVIDERS: ATTEND Internal Medicine Cardiovascular Disease
DX: I48.91 Unspecified atrial fibrillation (principal); R06.00 Dyspnea, unspecified; R00.9 Unspecified abnormalities of heart beat; N18.3 Chronic kidney disease, stage 3 (moderate); Z79.01 Long term (current) use of anticoagulants; Z79.899 Other long term (current) drug therapy
CPT/HCPCS: 36415; 80048; 80076; 81001; 82272; 83880; 85027; 85730

== ENCOUNTER → 2018-12-22 | Outpatient (CLI) | payer MEDICARE, BC ==
[2018-12-22 12:17] LABS: ANION GAP 7 (5-19); BLOOD UREA NITROGEN 27 mg/dL (7-20); CALCIUM 9.4 mg/dL (8.4-10.2); CARBON DIOXIDE 28 mmol/L (22-30); CHLORIDE 103 mmol/L (98-107); GLUCOSE 92 mg/dL (75-110); POTASSIUM 4.7 mmol/L (3.6-5.0)
== END ==
LOC: OD 11:11
PROVIDERS: ATTEND Internal Medicine Cardiovascular Disease
DX: I10 Essential (primary) hypertension (principal); R06.00 Dyspnea, unspecified; I48.91 Unspecified atrial fibrillation; Z79.01 Long term (current) use of anticoagulants; Z79.899 Other long term (current) drug therapy
CPT/HCPCS: 36415; 80048; 83880

== ENCOUNTER → 2019-01-26 | Outpatient (CLI) | payer MEDICARE, BC ==
[2019-01-26 11:49] LABS: ANION GAP 13 (5-19); BLOOD UREA NITROGEN 52 mg/dL (7-20); CALCIUM 9.8 mg/dL (8.4-10.2); CARBON DIOXIDE 25 mmol/L (22-30); CHLORIDE 106 mmol/L (98-107); GLUCOSE 105 mg/dL (75-110); POTASSIUM 4.8 mmol/L (3.6-5.0)
== END ==
LOC: OD 10:45
PROVIDERS: ATTEND Physician Assistant
DX: I12.9 Hypertensive chronic kidney disease with stage 1 through stage 4 chronic kidney disease, or unspecified chronic kidney disease (principal); N18.3 Chronic kidney disease, stage 3 (moderate); R06.00 Dyspnea, unspecified; Z79.899 Other long term (current) drug therapy
CPT/HCPCS: 36415; 80048; 83880

== ENCOUNTER → 2019-02-22 | Outpatient (CLI) | payer MEDICARE, BC ==
[2019-02-22 12:50] LABS: HEMATOCRIT 36.2 % (37.9-51.0); HEMOGLOBIN 12.3 g/dL (13.5-17.0); MEAN CORPUSCULAR HEMOGLOBIN 30.8 pg (27.0-33.4); MEAN CORPUSCULAR HGB CONC 33.9 g/dL (32.0-36.0); MEAN CORPUSCULAR VOLUME 91 fl (80-97); PLATELET COUNT 144 10^3/uL (150-450); RED BLOOD COUNT 3.99 10^6/uL (4.35-5.55); RED CELL DISTRIBUTION WIDTH 13.9 % (11.5-14.0); WHITE BLOOD COUNT 4.9 10^3/uL (4.0-10.5)
[2019-02-22 13:01] LABS: APPEARANCE,URINE SLIGHTLY-CLOUDY; BILIRUBIN,URINE NEGATIVE (NEGATIVE); COLOR,URINE AMBER; GLUCOSE, URINE NEGATIVE (NEGATIVE); KETONES,URINE TRACE mg/dL (NEGATIVE); LEUKOCYTE ESTERASE,URINE TRACE (NEGATIVE); NITRITE,URINE NEGATIVE (NEGATIVE); PROTEIN,URINE 30 mg/dL (NEGATIVE); URINE SPECIFIC GRAVITY 1.024
[2019-02-22 13:15] LABS: ALBUMIN 4.2 g/dL (3.5-5.0); ALKALINE PHOSPHATASE 63 U/L (38-126); ANION GAP 8 (5-19); ASPARTATE AMINO TRANSFERASE 25 U/L (17-59); BILIRUBIN,DIRECT 0.2 mg/dL (0.0-0.4); BILIRUBIN,TOTAL 0.9 mg/dL (0.2-1.3); BLOOD UREA NITROGEN 29 mg/dL (7-20); CALCIUM 9.2 mg/dL (8.4-10.2); CARBON DIOXIDE 30 mmol/L (22-30); CHLORIDE 103 mmol/L (98-107); GLUCOSE 93 mg/dL (75-110); POTASSIUM 4.5 mmol/L (3.6-5.0); TOTAL PROTEIN 7.2 g/dL (6.3-8.2)
== END ==
LOC: OD 11:53
PROVIDERS: ATTEND Internal Medicine Cardiovascular Disease
DX: I48.91 Unspecified atrial fibrillation (principal); Z79.01 Long term (current) use of anticoagulants; Z79.899 Other long term (current) drug therapy; R06.00 Dyspnea, unspecified
CPT/HCPCS: 36415; 80048; 80076; 81001; 82272; 83880; 85027; 85730

== ENCOUNTER → 2019-03-24 | Outpatient (CLI) | payer MEDICARE, BC ==
[2019-03-24 12:21] LABS: ANION GAP 11 (5-19); BLOOD UREA NITROGEN 33 mg/dL (7-20); CALCIUM 9.2 mg/dL (8.4-10.2); CARBON DIOXIDE 28 mmol/L (22-30); CHLORIDE 102 mmol/L (98-107); GLUCOSE 90 mg/dL (75-110); POTASSIUM 4.7 mmol/L (3.6-5.0)
== END ==
LOC: OD 11:07
PROVIDERS: ATTEND Internal Medicine Cardiovascular Disease
DX: N18.3 Chronic kidney disease, stage 3 (moderate) (principal); R06.00 Dyspnea, unspecified; R60.9 Edema, unspecified
CPT/HCPCS: 36415; 80048; 83880

== ENCOUNTER → 2019-05-31 | Outpatient (CLI) | payer MEDICARE, BC ==
[2019-05-31 14:25] LABS: HEMATOCRIT 37.9 % (37.9-51.0); MEAN CORPUSCULAR HEMOGLOBIN 30.8 pg (27.0-33.4); MEAN CORPUSCULAR HGB CONC 34.4 g/dL (32.0-36.0); MEAN CORPUSCULAR VOLUME 90 fl (80-97); PLATELET COUNT 148 10^3/uL (150-450); RED BLOOD COUNT 4.23 10^6/uL (4.35-5.55); RED CELL DISTRIBUTION WIDTH 13.6 % (11.5-14.0); WHITE BLOOD COUNT 3.8 10^3/uL (4.0-10.5)
[2019-05-31 14:54] LABS: ALBUMIN 4.5 g/dL (3.5-5.0); ALKALINE PHOSPHATASE 77 U/L (38-126); ANION GAP 12 (5-19); ASPARTATE AMINO TRANSFERASE 34 U/L (17-59); BILIRUBIN,DIRECT 0.4 mg/dL (0.0-0.4); BILIRUBIN,TOTAL 0.8 mg/dL (0.2-1.3); BLOOD UREA NITROGEN 38 mg/dL (7-20); CARBON DIOXIDE 26 mmol/L (22-30); CHLORIDE 101 mmol/L (98-107); GLUCOSE 93 mg/dL (75-110); POTASSIUM 4.8 mmol/L (3.6-5.0); TOTAL PROTEIN 7.9 g/dL (6.3-8.2)
[2019-05-31 16:06] LABS: APPEARANCE,URINE SLIGHTLY-CLOUDY; BILIRUBIN,URINE NEGATIVE (NEGATIVE); COLOR,URINE AMBER; GLUCOSE, URINE NEGATIVE (NEGATIVE); KETONES,URINE TRACE mg/dL (NEGATIVE); LEUKOCYTE ESTERASE,URINE NEGATIVE (NEGATIVE); NITRITE,URINE NEGATIVE (NEGATIVE); PROTEIN,URINE NEGATIVE (NEGATIVE); URINE SPECIFIC GRAVITY 1.021
[2019-05-31 16:36] LABS: ADD MANUAL MICROSCOPIC YES; AMORPHOUS SEDIMENT,UR TRACE; HYALINE CASTS, URINE TOO NUMEROUS TO CNT /LPF; WBC,URINE RARE /HPF
== END ==
LOC: OD 12:55
PROVIDERS: ATTEND Internal Medicine Cardiovascular Disease
DX: I48.91 Unspecified atrial fibrillation (principal); Z79.01 Long term (current) use of anticoagulants; Z79.899 Other long term (current) drug therapy
CPT/HCPCS: 36415; 80048; 80076; 81001; 82272; 85027; 85730

== ENCOUNTER → 2019-07-01 | Outpatient (CLI) | payer MEDICARE, BC ==
[2019-07-01 15:16] LABS: ANION GAP 9 (5-19); BLOOD UREA NITROGEN 34 mg/dL (7-20); CALCIUM 9.4 mg/dL (8.4-10.2); CARBON DIOXIDE 29 mmol/L (22-30); CHLORIDE 101 mmol/L (98-107); GLUCOSE 109 mg/dL (75-110); POTASSIUM 4.5 mmol/L (3.6-5.0)
== END ==
LOC: OD 13:47
PROVIDERS: ATTEND Internal Medicine Cardiovascular Disease
DX: I12.9 Hypertensive chronic kidney disease with stage 1 through stage 4 chronic kidney disease, or unspecified chronic kidney disease (principal); N18.3 Chronic kidney disease, stage 3 (moderate); I48.91 Unspecified atrial fibrillation
CPT/HCPCS: 36415; 80048

== ENCOUNTER → 2019-08-24 | Outpatient (CLI) | payer MEDICARE, BC ==
[2019-08-24 13:14] LABS: HEMATOCRIT 39.7 % (37.9-51.0); HEMOGLOBIN 13.6 g/dL (13.5-17.0); MEAN CORPUSCULAR HEMOGLOBIN 30.8 pg (27.0-33.4); MEAN CORPUSCULAR HGB CONC 34.3 g/dL (32.0-36.0); MEAN CORPUSCULAR VOLUME 90 fl (80-97); PLATELET COUNT 174 10^3/uL (150-450); RED BLOOD COUNT 4.42 10^6/uL (4.35-5.55)
[2019-08-24 13:18] LABS: APPEARANCE,URINE CLEAR; BILIRUBIN,URINE NEGATIVE (NEGATIVE); COLOR,URINE YELLOW; GLUCOSE, URINE NEGATIVE (NEGATIVE); KETONES,URINE TRACE mg/dL (NEGATIVE); LEUKOCYTE ESTERASE,URINE NEGATIVE (NEGATIVE); NITRITE,URINE NEGATIVE (NEGATIVE); PROTEIN,URINE NEGATIVE (NEGATIVE); URINE SPECIFIC GRAVITY 1.018
[2019-08-24 13:36] LABS: ALBUMIN 4.7 g/dL (3.5-5.0); ALKALINE PHOSPHATASE 72 U/L (38-126); ANION GAP 9 (5-19); ASPARTATE AMINO TRANSFERASE 24 U/L (17-59); BILIRUBIN,DIRECT 0.1 mg/dL (0.0-0.4); BILIRUBIN,TOTAL 0.9 mg/dL (0.2-1.3); BLOOD UREA NITROGEN 33 mg/dL (7-20); CALCIUM 9.6 mg/dL (8.4-10.2); CARBON DIOXIDE 30 mmol/L (22-30); CHLORIDE 100 mmol/L (98-107); GLUCOSE 101 mg/dL (75-110); POTASSIUM 4.4 mmol/L (3.6-5.0); TOTAL PROTEIN 7.9 g/dL (6.3-8.2)
== END ==
LOC: OD 12:00
PROVIDERS: ATTEND Internal Medicine Cardiovascular Disease
DX: I48.91 Unspecified atrial fibrillation (principal); Z79.01 Long term (current) use of anticoagulants; Z79.899 Other long term (current) drug therapy
CPT/HCPCS: 36415; 80048; 80076; 81001; 82272; 85027; 85730

== ENCOUNTER → 2019-12-05 | Outpatient (CLI) | payer MEDICARE, BC ==
[2019-12-05 12:45] LABS: APPEARANCE,URINE SLIGHTLY-CLOUDY; BILIRUBIN,URINE NEGATIVE (NEGATIVE); COLOR,URINE AMBER; GLUCOSE, URINE NEGATIVE (NEGATIVE); KETONES,URINE TRACE mg/dL (NEGATIVE); LEUKOCYTE ESTERASE,URINE NEGATIVE (NEGATIVE); NITRITE,URINE NEGATIVE (NEGATIVE); PROTEIN,URINE 30 mg/dL (NEGATIVE); URINE SPECIFIC GRAVITY 1.024
[2019-12-05 12:45] LABS: HEMOGLOBIN 13.8 g/dL (13.5-17.0); MEAN CORPUSCULAR HEMOGLOBIN 30.8 pg (27.0-33.4); MEAN CORPUSCULAR HGB CONC 34.5 g/dL (32.0-36.0); MEAN CORPUSCULAR VOLUME 89 fl (80-97); PLATELET COUNT 158 10^3/uL (150-450); RED BLOOD COUNT 4.47 10^6/uL (4.35-5.55); RED CELL DISTRIBUTION WIDTH 13.5 % (11.5-14.0); WHITE BLOOD COUNT 4.6 10^3/uL (4.0-10.5)
[2019-12-05 13:04] LABS: ALBUMIN 4.5 g/dL (3.5-5.0); ALKALINE PHOSPHATASE 70 U/L (38-126); ANION GAP 9 (5-19); ASPARTATE AMINO TRANSFERASE 21 U/L (17-59); BILIRUBIN,DIRECT 0.5 mg/dL (0.0-0.4); BILIRUBIN,TOTAL 1.1 mg/dL (0.2-1.3); BLOOD UREA NITROGEN 24 mg/dL (7-20); CALCIUM 9.2 mg/dL (8.4-10.2); CARBON DIOXIDE 29 mmol/L (22-30); CHLORIDE 102 mmol/L (98-107); GLUCOSE 104 mg/dL (75-110); POTASSIUM 4.2 mmol/L (3.6-5.0); TOTAL PROTEIN 7.6 g/dL (6.3-8.2)
== END ==
LOC: OD 11:46
PROVIDERS: ATTEND Internal Medicine Cardiovascular Disease
DX: I48.91 Unspecified atrial fibrillation (principal); Z79.01 Long term (current) use of anticoagulants; Z79.899 Other long term (current) drug therapy
CPT/HCPCS: 36415; 80048; 80076; 81001; 85027; 85730

== ENCOUNTER → 2020-03-01 | Outpatient (CLI) | payer MEDICARE, BC ==
[2020-03-01 14:35] LABS: APPEARANCE,URINE CLEAR; BILIRUBIN,URINE NEGATIVE (NEGATIVE); COLOR,URINE YELLOW; GLUCOSE, URINE NEGATIVE (NEGATIVE); KETONES,URINE NEGATIVE (NEGATIVE); LEUKOCYTE ESTERASE,URINE NEGATIVE (NEGATIVE); NITRITE,URINE NEGATIVE (NEGATIVE); PROTEIN,URINE NEGATIVE (NEGATIVE); URINE SPECIFIC GRAVITY 1.017
[2020-03-01 14:37] LABS: HEMATOCRIT 39.9 % (37.9-51.0); HEMOGLOBIN 13.2 g/dL (13.5-17.0); MEAN CORPUSCULAR HEMOGLOBIN 29.5 pg (27.0-33.4); MEAN CORPUSCULAR HGB CONC 33.2 g/dL (32.0-36.0); MEAN CORPUSCULAR VOLUME 89 fl (80-97); PLATELET COUNT 162 10^3/uL (150-450); RED BLOOD COUNT 4.48 10^6/uL (4.35-5.55); RED CELL DISTRIBUTION WIDTH 13.3 % (11.5-14.0); WHITE BLOOD COUNT 4.1 10^3/uL (4.0-10.5)
[2020-03-01 15:02] LABS: ALBUMIN 4.5 g/dL (3.5-5.0); ALKALINE PHOSPHATASE 76 U/L (38-126); ANION GAP 8 (5-19); ASPARTATE AMINO TRANSFERASE 20 U/L (17-59); BILIRUBIN,DIRECT 0.2 mg/dL (0.0-0.4); BLOOD UREA NITROGEN 28 mg/dL (7-20); CALCIUM 9.6 mg/dL (8.4-10.2); CARBON DIOXIDE 30 mmol/L (22-30); CHLORIDE 99 mmol/L (98-107); GLUCOSE 98 mg/dL (75-110); POTASSIUM 4.7 mmol/L (3.6-5.0); TOTAL PROTEIN 7.7 g/dL (6.3-8.2)
== END ==
LOC: OD 13:39
PROVIDERS: ATTEND Internal Medicine Cardiovascular Disease
DX: I48.91 Unspecified atrial fibrillation (principal); Z79.01 Long term (current) use of anticoagulants; Z79.899 Other long term (current) drug therapy
CPT/HCPCS: 36415; 80048; 80076; 81001; 82272; 85027; 85730